=== PATIENT | male | born 1940 | race Caucasian/White ===

== ENCOUNTER → 2017-11-05 10:14 | Outpatient (CLI) | payer MEDICARE, SELFPAY ==
[2017-11-05 12:49] LABS: Anion Gap 8 (5-15); BUN 18 mg/dL (7-18); BUN/Creat Ratio 19.8 RATIO (10-20); Calcium,Total 8.5 mg/dL (8.5-10.1); Chloride 109 mmol/L (98-107); Cholesterol 172 mg/dL (200); Creatinine, Serum 0.91 mg/dL (0.70-1.30); EST Glomerular Filtration Rate 86 mL/min (>60); Est Glom Filt Rate - Afr Amer 104 mL/min (>60); Glucose 118 mg/dL (74-106); High Density Lipoprotein 32 mg/dL; PSA,Total - Annual Screen < 0.01 ng/mL (0.00-4.00); Potassium 4.1 mmol/L (3.5-5.1); Sodium Level 142 mmol/L (136-145); Thyroid Stim Hormone (TSH) 3.07 uIU/mL (0.358-3.74); Triglycerides 200 mg/dL; Very Low Density Lipoprotein 40 mg/dL (5-40)
[2017-11-06 11:17] LABS: Vitamin D,25 Hydroxy 31.6 ng/mL (29.95-100.01)
== END ==
PROVIDERS: Family Provider Family Medicine; PCP Family Medicine; Visit Provider Family Medicine
DX: Z00.00 Encounter for general adult medical examination without abnormal findings (principal); Z12.5 Encounter for screening for malignant neoplasm of prostate
CPT/HCPCS: 36415; 80048; 80061; 82306; 84153; 84443; G0103

== ENCOUNTER → 2018-12-10 09:22 | Outpatient (CLI) | payer MEDICARE, SELFPAY ==
[2018-12-10 10:39] LABS: Anion Gap 4 (5-15); BUN 21 mg/dL (7-18); BUN/Creat Ratio 21.7 RATIO (10-20); Calcium,Total 8.6 mg/dL (8.5-10.1); Chloride 111 mmol/L (98-107); Creatinine, Serum 0.97 mg/dL (0.70-1.30); EST Glomerular Filtration Rate 80 mL/min (>60); Est Glom Filt Rate - Afr Amer 96 mL/min (>60); Glucose 132 mg/dL (74-106); Potassium 4.1 mmol/L (3.5-5.1); Sodium Level 140 mmol/L (136-145)
== END ==
PROVIDERS: Family Provider Family Medicine; PCP Family Medicine; Referring Provider Family Medicine; Visit Provider Family Medicine
DX: R42 Dizziness and giddiness (principal)
CPT/HCPCS: 36415; 80048

== ENCOUNTER 2020-07-05 13:43 | Outpatient (RCR) | payer MEDICARE, SELFPAY | END 2020-07-05 23:59 | LOC: IMMUN 13:43 | PROVIDERS: PCP Family Medicine; Visit Provider Family Medicine | DX: Z23 Encounter for immunization (principal) | CPT/HCPCS: 0011A; 0012A; 91301 ==

== ENCOUNTER → 2022-09-10 | Outpatient (CLI) | payer MEDICARE, SELFPAY ==
[2022-09-10 12:58] LABS: Anion Gap 8 (5-15); BUN 19 mg/dL (7-18); BUN/Creat Ratio 20.1 RATIO (10-20); Chloride 108 mmol/L (98-107); Cholesterol 214 mg/dL (200); Creatinine, Serum 0.94 mg/dL (0.70-1.30); EST Glomerular Filtration Rate 81 mL/min (>60); Est Glom Filt Rate - Afr Amer 98 mL/min (>60); Glucose 125 mg/dL (74-106); High Density Lipoprotein 35 mg/dL; PSA,Total - Annual Screen < 0.01 ng/mL (0.00-4.00); Potassium 4.4 mmol/L (3.5-5.1); Sodium Level 141 mmol/L (136-145); Triglycerides 265 mg/dL; Very Low Density Lipoprotein 53 mg/dL (5-40)
[2022-09-10 13:04] LABS: Vitamin D,25 Hydroxy 47.8 ng/mL
[2022-09-10 17:06] LABS: Hemoglobin A1c 6.6 % (3.8-5.6)
== END | disposition home or self-care (01) ==
LOC: MFPLAB 10:16
PROVIDERS: PCP Family Medicine; Referring Provider Family Medicine; Visit Provider Family Medicine
DX: Z00.00 Encounter for general adult medical examination without abnormal findings (principal); E55.9 Vitamin D deficiency, unspecified; R73.01 Impaired fasting glucose; Z12.5 Encounter for screening for malignant neoplasm of prostate
CPT/HCPCS: 36415; 80048; 80061; 82306; 83036; 84153; G0103

== ENCOUNTER 2023-05-19 10:19 | Observation (INO) | payer MEDICARE, SELFPAY ==
[2023-05-19] VITALS (7 sets, daily range): BP systolic 117–138; BP diastolic 59–78; PULSE 93–107; RESP 12–18; TEMP 36.9–37.4; O2SAT 96–99; BMI 29.6; BMI 23.9
--- NOTE | 2023-05-19 10:29 | CT_ITS ---
STUDY: CT BRAIN WITHOUT CONTRAST REASON FOR EXAM: Male, 83 years old. Weakness. Fall. RADIATION DOSAGE (If Supplied By Facility): CTDIvol = ( 44.99 ) mGy, DLP = ( 796.11 ) mGycm TECHNIQUE: Transaxial CT imaging of the brain was performed without administration of intravenous contrast material. Individualized dose optimization techniques were used for this CT. COMPARISON: No relevant priors. FINDINGS: Normal soft tissue structures. Normal calvarium. There is mild cerebral atrophy with widening of the extra-axial spaces and ventricular dilatation. There are areas of decreased attenuation within the white matter tracts of the supratentorial brain, consistent with microvascular disease changes. Normal basal ganglia and thalami. Normal brainstem. Normal cerebellum. There is no intracranial hemorrhage. There are no findings of an acute ischemic infarction. Atherosclerotic calcific plaques of the vertebral arteries and cavernous portions of the internal carotid arteries bilaterally. Normal visualized paranasal sinuses. CT/Brain/Head without Contrast IMPRESSION: Chronic involutional changes of the brain. Electronically Signed: Adis Carlisle MD at 12:06 EST ,
--- NOTE | 2023-05-19 10:31 | EDS_ITS ---
HPI HPI - Fall History of Present Illness Chief Complaint: Fall Informant: patient and family (Daughter) Occured/Mechanism Occurred: Today Usually ambulates: Without assistance Pain/Injury Pain Location: none Current Severity: Mild Maximum Severity: Mild Associated Symptoms Associated Symptoms: Positive for Weakness; Negative for Parasthesias, Loss of function, Inability to ambulate, Loss of consciousness or Amnesia Narrative Narrative: 83-year-old male history of prior prostate cancer for which he underwent prostatectomy. Prior lumbar disc surgery 20 to 30 years ago. Very active gentleman. Walks 1 to 2 miles each day. Today just feels weak all over. He tried to get out of bed and he just lowered himself to the floor and was unable to get himself up. Brought in by squad. Denies any injuries from the fall. No recent headaches. No chest pain or shortness of breath. He denies any recent fever or chills. He denies any recent nausea, vomiting or diarrhea. He denies any dysuria. Prior similar symptoms: No Recent Illness/Hospitalization: No PFSH PFSH Medical History Bilateral cataracts Eye trauma Prostate cancer Allergy/AdvReac Type Severity Reaction Status Date / Time No Known Allergies Allergy Verified 05/19/23 10:28 Surgical History History of back surgery Social History Smoking Status: Never smoker ROS ROS ED ROS Narrative Neurolyse weakness. Denies any recent illness. Review of Systems ROS Unobtainable: Denies due to encephalopathy Constitutional Constitutional ED: Denies chills or fever(s) Eyes Eyes: Denies blurry vision ENT ENT ED: Denies ear pain Cardiovascular Cardiovascular: Denies chest pain Respiratory/Chest Respiratory/Chest: Denies cough or dyspnea Gastrointestinal Gastrointestinal: Denies abdominal pain, constipation, diarrhea, melena, nausea or vomiting Genitourinary Genitourinary ED: Denies dysuria or hematuria Musculoskeletal Musculoskeletal: Reports back pain; Denies arthralgias Integumentary Denies abscess or Abrasions Neurologic Neurologic: Denies headache(s) Psychiatric Psychiatric: Denies anxiety Endocrine Endocrinology: Denies polydipsia Hematologic/Lymphatic Hematologic/Lymphatic: Denies easy bleeding or easy bruising Allergic/Immunologic Allergic/Immunologic ED: Denies mouth swelling or tongue swelling EXAM Physical Exam Narrative Exam Narrative: 83-year-old male. Vital signs stable afebrile. No acute distress. Daughter who is an RN is at bedside. H EENT exam unremarkable atraumatic. No facial droop. Normal speech. No trauma. Neck nontender. No lymphadenopathy. Lungs clear to auscultation bilaterally. Heart regular rhythm rate in the 90s. No murmur. Chest wall nontender. Abdomen soft nontender. Back nontender. No signs of trauma. Pelvic girdle intact. Moving all 4 extremities. Normal senior international tax manager strength. Normal dorsi plantarflexion. No edema. Neurologically is awake and alert. Answering questions and following commands. Normal senior international tax manager strength. Normal dorsi plantarflexion. No drift. Const Vital Signs: 05/19/23 10:21 05/19/23 10:49 05/19/23 10:49 Temperature 99 F Temperature Source Temporal Pulse Rate 99 Respiratory Rate 18 Respiratory Effort Normal Non-Labored Normal Non-Labored Respiratory Depth Normal Respiratory Pattern Normal Blood Pressure 130/78 H Blood Pressure Mean 95 Pulse Ox 99 97 Oxygen Delivery Method Room Air Room Air Positive well nourished and well developed; Negative for obese, cachectic, contractures or unkempt General Appearance ED: well developed and NAD; Negative for unkempt, cachectic or contractures Nutritional Appearance: Negative for cachectic or obese HEENT Reports normocephalic atraumatic; Negative for trauma, contusion, hematoma or tenderness Eyes PERRL and EOMs intact bilaterally General Eye ED: Negative for pale conjunctiva or scleral icterus Neck full ROM, no lymphadenopathy and supple General: Negative for tenderness Chest Wall inspection of chest normal and palpation of chest normal Chest: Negative for other Resp normal respiratory effort, no retractions and clear to auscultation bilaterally Effort and Inspection: Negative for pain with movement Auscultation: Negative for rales, rhonchi or wheezes Cardio regular rate, regular rhythm, S1 normal heart sound, S2 normal heart sound and no murmurs Rate: Negative for bradycardia or tachycardic Rhythm: Negative for abnormal rhythm Bruits: Negative for other GI non-tender, non-distended and no masses Inspection: Negative for abdominal distention Auscultation: normoactive bowel sounds Palpation: soft; Negative for guarding or rebound tenderness present Back/Spine no CVA tenderness General Back: Negative for CVA tenderness Cervical Spine: Negative for cervical spine tenderness Thoracic Spine / Upper Back: Negative for ROM limited Lumbar Spine / Lower Back: Negative for lumbar spinal tenderness Extremity Extremity Narrative: Moving all 4 extremities. Nontender no edema. Neuro oriented x3, CN's II-XII intact bilaterally, moves all extremities, no focal motor deficits and no sensory deficits noted Sensorium / Orientation: oriented to person, oriented to place and oriented to time; Negative for orientation impaired, confused, lethargic or stuporous Motor Exam: strength 5/5 throughout Psych mental status grossly normal and thought process normal Appearance: Negative for unkempt Attitude: No agitated Mood & Affect: Negative for depressed, anxious or tearful Skin General Skin Exam: Negative for other Lesions: no lesions Rashes: no rashes Trauma: Negative for abrasion or laceration MDM MDM MDM Narrative Medical decision making narrative: 83-year-old male with generalized weakness. He did not have any focal findings make me think this is a stroke. He basely try to get out of bed this morning and slid to the ground and was unable to get up. No injuries from that. Screening labs are being obtained. Repeat exam patient is doing well at 11:45 AM. We did try to walk him with a walker patient was very weak he needed a lot of assistance and he almost fell. We helped him back in bed. I will speak to the hospitalist about admission. Both the patient and his daughter are comfortable with the plan. History & Record Review Discussion w/independent historian: Patient Additional record(s) reviewed:: Prior inpatient record, Prior outpatient record, Prior ED visit and Prior labs Lab Data Attestation: I reviewed the patient's lab results. Lab results narrative: CBC shows a white count 9.9. H&H 12.5 and 37.6. Platelets 190. No prior CBC available for comparison. Chemistries show a gap of 3 normal BUN of 17 creatinine of 1. Glucose 155. Liver enzymes are normal. Troponin is normal at 8. Chest x-ray chronic changes no acute process. Rapid COVID-positive. Influenza negative. Labs: Laboratory Results - last 24 hr 05/19/23 10:40 WBC 9.9 RBC 3.75 L Hgb 12.5 L Hct 37.6 L MCV 100.3 H MCH 33.3 H MCHC 33.2 RDW Std Deviation 47.0 H RDW Coeff of Ernestina 12.8 Plt Count 190 MPV 8.8 Immature Gran % (Auto) 0.400 Neut % (Auto) 82.5 H Lymph % (Auto) 7.7 L [place] % (Auto) 8.2 Eos % (Auto) 0.9 Baso % (Auto) 0.3 Absolute Neuts (auto) 8.2 H Absolute Lymphs (auto) 0.76 L Nucleated RBC % 0 Sodium 138 Potassium 4.4 Chloride 108 H Carbon Dioxide 27.0 Anion Gap 3 L BUN 17 Creatinine 1.02 Estim Creat Clear Calc 55.66 Est GFR (MDRD) Af Amer 89 Est GFR (MDRD) Non-Af 74 BUN/Creatinine Ratio 16.7 Glucose 155 H Calcium 8.6 Total Bilirubin 0.80 AST 12 L ALT 18 Alkaline Phosphatase 92 Troponin I High Sens 8 Total Protein 7.2 Albumin 3.3 Globulin 3.9 Albumin/Globulin Ratio 0.8 L Radiography Chest X-Ray - ED: 1 View, Read by ED Physician, Heart, Lungs, Mediastinum, Bony Structures, No Acute Disease and Chronic Changes Diagnostic Testing: Clinical Impression(s) from Imaging Studies Chest X-Ray 05/19/23 10:55 IMPRESSION: Normal x-ray examination of the chest. Electronically Signed: Adis Carlisle MD at 11:26 EST Reading Location ID and State: [address] [place] [address] , Service support , Chest x-ray, portable, single view interpreted by myself shows no acute abnormality. Normal cardiac silhouette. Normal lung oconnell. Rhythm Strip Rhythm Strip: Sinus Tach Rate: 101 Ectopy: None EKG Initial EKG: Attestation: I personally reviewed and interpreted this EKG as follows: Interpretation: No Acute Injury Pattern and Sinus Tachycardia Comments: Sinus tachycardia rate of 101 no acute signs of MA or ischemia. Discharge Plan Triage Chief Complaint: Fall ED Provider: Po Chun Dx/Rx/DC Orders Primary Care Provider: Bayron Alvarez Referrals: Bayron Alvarez MD [Primary Care Provider] -
--- NOTE | 2023-05-19 10:45 | NURSING ---
NO OLD EKGS
[2023-05-19 10:49] LABS: Absolute Lymphocyte Count 0.76 X10^3/uL (0.83-4.51); Absolute Neutrophil Count 8.2 X10^3/uL (2.0-7.7); Basophil# 0.03 X10^3/uL; Basophil% 0.3 % (0-1); Eosinophil# 0.09 X10^3/uL; Eosinophils% 0.9 % (0-5); Hematocrit 37.6 % (40-54); Hemoglobin 12.5 g/dL (13.0-16.5); Lymphocyte # 0.76 X10^3/ul (0.83-4.51); Lymphocyte % 7.7 % (19-41); Mean Corp Hgb Conc 33.2 g/dL (32-36); Mean Corpuscular Hgb 33.3 pg (27.0-32.0); Mean Corpuscular Volume 100.3 fL (80-94); Mean Platelet Vol. 8.8 fl (6.2-12.0); Monocyte# 0.81 X10^3/uL; Monocyte% 8.2 % (0-10); NRBC Flagged by Analyzer 0 % (0-5); Neutrophil # 8.19 X10^3/uL (2.7-7.7); Neutrophil % 82.5 % (47-70); Platelet Count 190 K/mm3 (150-450); RBC Distribution Width CV 12.8 % (11.6-14.6); Red Blood Count 3.75 M/mm3 (4.6-6.2); White Blood Count 9.9 K/mm3 (4.4-11.0)
--- NOTE | 2023-05-19 10:55 | RAD_ITS ---
STUDY: X-RAY CHEST REASON FOR EXAM: Male, 83 years old. weakness TECHNIQUE: Single AP portable view of the chest. COMPARISON: None. FINDINGS: EKG electrodes are seen. The lungs are clear and expanded. There is no demonstrated pleural abnormality. Normal size heart. Normal mediastinum and bravo. Normal visualized pulmonary arteries. There is atherosclerotic tortuosity of the aortic arch and descending thoracic aorta. There are diffuse degenerative changes of the visualized thoracic spine. Normal visualized ribs, clavicles, and shoulders. There is no demonstrated abnormality of the visualized soft tissue structures of the upper abdomen. RAD/Chest 1 View (Portable) IMPRESSION: Normal x-ray examination of the chest. Electronically Signed: Adis Carlisle MD at 11:26 EST ,
[2023-05-19 11:09] LABS: ALB/GLOB Ratio 0.8 RATIO (0.9-2.4); AST(SGOT) 12 U/L (15-37); Alanine Aminotransfer ALT/SGPT 18 U/L (16-61); Albumin, Serum 3.3 g/dL (3.2-5.0); Alkaline Phosphatase 92 U/L (45-117); Anion Gap 3 (5-15); BUN 17 mg/dL (7-18); BUN/Creat Ratio 16.7 RATIO (10-20); Calcium,Total 8.6 mg/dL (8.5-10.1); Chloride 108 mmol/L (98-107); Creatinine, Serum 1.02 mg/dL (0.70-1.30); EST Glomerular Filtration Rate 74 mL/min (>60); Est Glom Filt Rate - Afr Amer 89 mL/min (>60); Estimated Creatinine Clearance 55.66 ml/min; Globulin 3.9 g/dL (2.2-4.2); Glucose 155 mg/dL (74-106); Potassium 4.4 mmol/L (3.5-5.1); Protein, Total 7.2 g/dL (6.4-8.2); Sodium Level 138 mmol/L (136-145); Troponin-I HS 8 pg/mL (3.0-78.0)
--- NOTE | 2023-05-19 11:53 | HP.PCM.HOS_ITS ---
HPI - General General Date of Admission: 05/19/23 Date of Service: 05/19/23 Chief Complaint: debility, mechanical fall HPI Narrative JAKE GUTIÉRREZ, is a 83 M with a PMH as outlined who presents via the ED on 05/19/2023 with a complaint of weakness and mechanical fall. He is usually very active and able to walk at least 1-2 miles every day. Today he felt very weak; he tried to to get out of bed but was very weak and so just lowered himself to the ground. He was unable to get up by himself, and family couldnt get him up either. His family therefore called in the squad and he was brought in to the ED. He denied any fever, chills, palpitations, dizziness, nausea, vomiting or any other symptoms. Review of systems is otherwise negaive. Vitals at time of review were temperature of 99 Fahrenheit with pulse rate of 99, blood pressure 130/78 and pulse ox of 97% on room air. CBC showed hemoglobin of 12.5 with WBC of 9.9 and platelets of 190. Chemistry was essentially unremarkable. COVID test was negative. Chest x-ray showed no acute cardiopulmonary process and brain CT showed no acute intracranial pathology. He has been admitted to be managed for debility and weakness likely due to COVID. [facility] Medical History Bilateral cataracts Eye trauma Prostate cancer Home Medications vitamin B complex (B-Complex tablet) 1 tab PO DAILY 05/19/23 [History Last Taken 05/19/23] Allergy/AdvReac Type Severity Reaction Status Date / Time No Known Allergies Allergy Verified 05/19/23 10:28 Surgical History History of back surgery Social History Smoking Status: Never smoker ROS Constitutional Constitutional: Reports fatigue, malaise and weakness; Denies anorexia, change in weight, chills or fever(s) Eyes Eyes: Denies change in vision ENT HEENT: Denies dysphagia or headache(s) Cardiovascular Cardiovascular: Denies chest pain, dyspnea on exertion, edema, lightheadedness, orthopnea, palpitations, paroxysmal nocturnal dyspnea or rapid heart rate Respiratory/Chest Respiratory/Chest: Denies cough, dyspnea, shortness of breath at rest or shortness of breath with exertion Gastrointestinal Gastrointestinal: Denies abdominal pain, constipation, diarrhea, nausea or vomiting Genitourinary Genitourinary: Denies burning urination, difficulty urinating or dysuria Musculoskeletal Musculoskeletal: Denies arthralgias or back pain Neurologic Neurologic: Denies dizziness, focal weakness, headache(s) or numbness Psychiatric Psychiatric: Denies anxiety Hematologic/Lymphatic Hematologic/Lymphatic: Denies anemia Vital Signs Vital Signs Vital Signs: 05/19/23 10:21 05/19/23 10:49 05/19/23 10:49 Temperature 99 F Temperature Source Temporal Pulse Rate 99 Respiratory Rate 18 Respiratory Effort Normal Non-Labored Normal Non-Labored Respiratory Depth Normal Respiratory Pattern Normal Blood Pressure 130/78 H Blood Pressure Mean 95 Pulse Ox 99 97 Oxygen Delivery Method Room Air Room Air Weight Weight: 206 lb 9.17 oz Body Mass Index (BMI) 29.6 Physical Exam Const alert, oriented x3 and no apparent distress General Appearance: cooperative HEENT normocephalic, head/scalp atraumatic, hearing grossly normal bilaterally and m oist oral mucous membranes Mouth: oral and palatal mucosa normal Eyes PERRL, EOMs intact bilaterally and conjunctivae normal Neck no lymphadenopathy and supple Resp normal respiratory effort, no retractions, no use of accessory muscles and clear to auscultation bilaterally Resp Narrative: on room air. Cardio regular rate, regular rhythm, S1 normal heart sound, S2 normal heart sound and no murmurs GI normal to inspection, nondistended, normoactive bowel sounds, soft to palpation, non-tender and non-distended Extremity normal to inspection, full ROM and no clubbing, cyanosis or edema Neuro oriented x3, CN's II-XII intact bilaterally, moves all extremities and no focal motor deficits Sensorium / Orientation: awake and alert Motor Exam: strength 5/5 throughout Psych affect normal Results Lab / Micro Data 05/19/23 10:40 05/19/23 10:40 Labs: Laboratory Results - last 24 hr 05/19/23 10:40: WBC 9.9, RBC 3.75 L, Hgb 12.5 L, Hct 37.6 L, MCV 100.3 H, MCH 33.3 H, MCHC 33.2, RDW Std Deviation 47.0 H, RDW Coeff of Ernestina 12.8, Plt Count 190, MPV 8.8, Immature Gran % (Auto) 0.400, Neut % (Auto) 82.5 H, Lymph % (Auto) 7.7 L, [place] % (Auto) 8.2, Eos % (Auto) 0.9, Baso % (Auto) 0.3, Absolute Neuts (auto) 8.2 H, Absolute Lymphs (auto) 0.76 L, Nucleated RBC % 0, Sodium 138, Potassium 4.4, Chloride 108 H, Carbon Dioxide 27.0, Anion Gap 3 L, BUN 17, Creatinine 1.02, Estim Creat Clear Calc 55.66, Est GFR (MDRD) Af Amer 89, Est GFR (MDRD) Non-Af 74, BUN/Creatinine Ratio 16.7, Glucose 155 H, Calcium 8.6, Total Bilirubin 0.80, AST 12 L, ALT 18, Alkaline Phosphatase 92, Troponin I High Sens 8, Total Protein 7.2, Albumin 3.3, Globulin 3.9, Albumin/Globulin Ratio 0.8 L Micro: Microbiology 05/19/23 10:41 Nasal Secretion SARS-CoV-2 & FLU Antigen (Rapid) - Final Rhythm Strip Rhythm Strip: Sinus Tach Rate: 101 Ectopy: None Imagaing Radiology Impression Chest X-Ray 05/19/23 10:55 IMPRESSION: Normal x-ray examination of the chest. Electronically Signed: Adis Carlisle MD at 11:26 EST Reading Location ID and State: [address] [place] [address] , Service support , Assessment & Plan Assessment/Plan (1) Fall: (2) Difficulty in walking: (3) COVID: PLAN: Plan #Debility and weakness * Likely due to COVID-19 infection. Currently on room air. * [place] very weak today. He is usually very active and able to walk at least 1 to 2 miles daily. * Admit to [facility] under observation. * Hydrate gently with IV fluids. Consult PT OT. Fall precautions. * #COVID-19 infection: Asymptomatic. On room air. Will hold off on Decadron and remdesivir as he is on room air. #History of remote prostate cancer s/p prostatectomy: Stable DVT prophylaxis: Lovenox CODE STATUS: full code * Patient counseled extensively about different types of CODE STATUS including full code, DNR CCA and DNR CCA. Patient elects to be full code. Total [id number] time 16 minutes. Charges/Coding Visit Charges Inpatient E&M: 63061 Init Hosp L2 Procedures Hospitalists Procedures: 34698 Advncd Care Plan 30 Min
--- NOTE | 2023-05-19 11:57 | NURSING ---
[facility] OBS [place] [facility] WEAKNESS, COVID, DIFFICULTY WALKING
[2023-05-19] MEDS: 0.9% Normal Saline (1000mL) 1,000 ML 125 ML IV ×2 (12:57→21:19)
[2023-05-19 14:35] LABS: Bacteria 0 SEEN /hpf (None Seen); Mucous, Urine 0 SEEN /hpf (<or=2+); Red Blood Cells-Urine 0 SEEN /hpf (0-5); Squamous Epithelial Cells - UA 0 SEEN /hpf (0-5); White Blood Cells 0 SEEN /hpf (0-5)
[2023-05-19 14:36] LABS: Color, Urine Yellow (Yellow); Glucose, Dipstick Normal (Normal); Ketone-Dipstick Negative (Negative); Leukocyte Esterase-Dipstick Negative /ul (Negative); Nitrite-Dipstick Negative (Negative); Occult Blood-Urine Negative /ul (Negative); Protein-Dipstick 15 mg/dl (Negative); Specific Gravity, Urine 1.015 (1.002-1.030); Urine Bilirubin Dipstick Negative (Negative); Urine Clarity Clear (Clear); Urine Urobilinogen Normal (Normal); Urine pH 6.5 (5.0 - 8.0)
[2023-05-20 03:00] VITALS: BP 111/59; PULSE 78; RESP 15; TEMP 36.8; O2SAT 94
[2023-05-20 03:08] VITALS: BP 111/59; PULSE 78; RESP 15; TEMP 36.8; O2SAT 94
[2023-05-20 07:58] VITALS: BP 106/65; PULSE 82; RESP 16; TEMP 37.2; O2SAT 99
[2023-05-20] MEDS: Vitamin B Comp W-C Capsule 1 CAP PO (08:17)
[2023-05-20] MEDS: Enoxaparin 40 MG/0.4 ML Syringe SC (08:18)
[2023-05-20 08:44] LABS: Absolute Lymphocyte Count 1.11 X10^3/uL (0.83-4.51); Basophil# 0.03 X10^3/uL; Basophil% 0.4 % (0-1); Eosinophil# 0.15 X10^3/uL; Eosinophils% 1.8 % (0-5); Hematocrit 32.8 % (40-54); Hemoglobin 10.7 g/dL (13.0-16.5); Lymphocyte # 1.11 X10^3/ul (0.83-4.51); Lymphocyte % 13.4 % (19-41); Mean Corp Hgb Conc 32.6 g/dL (32-36); Mean Corpuscular Hgb 33.2 pg (27.0-32.0); Mean Corpuscular Volume 101.9 fL (80-94); Mean Platelet Vol. 8.9 fl (6.2-12.0); Monocyte% 12.1 % (0-10); NRBC Flagged by Analyzer 0 % (0-5); Neutrophil # 5.96 X10^3/uL (2.7-7.7); Neutrophil % 71.8 % (47-70); Platelet Count 165 K/mm3 (150-450); Red Blood Count 3.22 M/mm3 (4.6-6.2); White Blood Count 8.3 K/mm3 (4.4-11.0)
[2023-05-20 09:23] LABS: Anion Gap 4 (5-15); BUN 16 mg/dL (7-18); BUN/Creat Ratio 16.3 RATIO (10-20); Calcium,Total 8.4 mg/dL (8.5-10.1); Chloride 113 mmol/L (98-107); Creatinine, Serum 0.98 mg/dL (0.70-1.30); EST Glomerular Filtration Rate 77 mL/min (>60); Est Glom Filt Rate - Afr Amer 93 mL/min (>60); Estimated Creatinine Clearance 61.59 ml/min; Glucose 141 mg/dL (74-106); Potassium 4.1 mmol/L (3.5-5.1); Sodium Level 140 mmol/L (136-145)
--- NOTE | 2023-05-20 11:02 | DCINST_ITS ---
Discharge Instructions Diet Discharge Diet: No restrictions Activity Discharge Activity: Return to Normal Activity and - (Quarantine for a total of 7 days from 05/19/2023) Weight Bearing Status: Full weight bearing Follow Up Care Test Results: Test results from this visit will be discussed in further detail at your follow- up appointment, if applicable. Discharge Plan Admission Admit Date/Time: 05/19/23 12:12 Primary Reason for Your Visit: covid-19 infection Attending Provider: Shaheen Mcfarland Primary Care Provider: Bayron Alvarez Consulting Providers: Jasmin Hurst Discharge Orders/Prescriptions Prescriptions: Continued vitamin B complex [B-Complex] Tablet 1 tab PO DAILY Referrals / Follow Up: Bayron Alvarez MD [Primary Care Provider] - See Referral Note (At next scheduled appointment time) Disposition Disposition (needs filled in before D/C Order can be placed): Home, Self Care
--- NOTE | 2023-05-20 11:06 | PCM.DC.SUM ---
Providers Date of Admission: 05/19/23 Date of Discharge: 05/20/23 Primary Care Physician: Dr. Bayron Alvarez MD Reason For Visit: DEBILITY AND WEAKNESS / COVID INFECTION Diagnosis Discharge Diagnosis (1) Fall: Status: Acute Code(s): W19.XXXA - Unspecified fall, initial encounter (2) Difficulty in walking: Status: Acute Code(s): R26.2 - Difficulty in walking, not elsewhere classified (3) COVID: Status: Acute Code(s): U07.1 - COVID-19 Plan 1. Generalized weakness secondary to COVID-19 infection #2 COVID-19 infection requiring COVID-19 precautions, without pneumonia Medications at Discharge Home Medications vitamin B complex (B-Complex tablet) 1 tab PO DAILY 05/19/23 Hospital Course Operations None Procedures None Summary of Care Provided Minutes Spent on Discharge: 30 Hospital Course: 3-year-old white female was seen in the emergency room at [facility] with the complaint of generalized weakness and a mechanical fall at home. Workup in the emergency room revealed her pulse ox to be 97% on room air, CBC showed a hemoglobin of 12.5 and a white blood cell count of 9.9. Patient's chemistry profile was unremarkable, COVID test was positive. Patient was placed in the observation status on PCU and seen by PT and OT, she was placed in COVID precautions. The following day, patient appeared improved from admission. On 05/20/2023, patient was seen and examined: On examination she appeared in good health and spirits, she does not appear to be in any distress. Vital signs as documented. Skin warm and dry and without overt rashes. Neck without JVD, thyroid appears normal, trachea is midline, neck is supple. Lungs clear, normal air movement was noted. Heart exam notable for regular rhythm, normal sounds and absence of murmurs, rubs or gallops. Abdomen unremarkable and without evidence of organomegaly, masses, or abdominal aortic enlargement, bowel sounds are present in all 4 quadrants, no abdominal tenderness was noted. Extremities nonedematous, no cyanosis was noted, no clubbing was noted. Neuro: Cranial nerves II through XII are grossly intact, no focal motor deficits were noted, sensation to light touch and pinprick is intact, motor exam 5/5 throughout. Psych: Patient is alert and oriented x3, she does not appear anxious or depressed, she does not appear agitated. Patient appears stable for discharge home on 05/20/2023. Weight / BMI Weight Weight: 80 kg Body Mass Index (BMI) 23.9 ABG / Lab / Microbiology Data 05/20/23 08:25 05/20/23 08:25 Laboratory: Laboratory Results - last 24 hr 05/19/23 10:40: Sodium 138, Potassium 4.4, Chloride 108 H, Carbon Dioxide 27.0, Anion Gap 3 L, BUN 17, Creatinine 1.02, Estim Creat Clear Calc 55.66, Est GFR (MDRD) Af Amer 89, Est GFR (MDRD) Non-Af 74, BUN/Creatinine Ratio 16.7, Glucose 155 H, Calcium 8.6, Total Bilirubin 0.80, AST 12 L, ALT 18, Alkaline Phosphatase 92, Troponin I High Sens 8, Total Protein 7.2, Albumin 3.3, Globulin 3.9, Albumin/Globulin Ratio 0.8 L 05/19/23 14:20: Urine Color Yellow, Urine Clarity Clear, Urine pH 6.5, Ur Specific [place] 1.015, Urine Protein 15 H, Urine Glucose (UA) Normal, Urine Ketones Negative, Urine Occult Blood Negative, Urine Nitrite Negative, Urine Bilirubin Negative, Urine Urobilinogen Normal, Ur Leukocyte Esterase Negative, Urine RBC 0 SEEN, Urine WBC 0 SEEN, Ur Squamous Epith Cells 0 SEEN, Urine Bacteria 0 SEEN, Urine Mucus 0 SEEN 05/20/23 08:25: WBC 8.3, RBC 3.22 L, Hgb 10.7 L, Hct 32.8 L, MCV 101.9 H, MCH 33.2 H, MCHC 32.6, RDW Std Deviation 49.0 H, RDW Coeff of Ernestina 13.0, Plt Count 165, MPV 8.9, Immature Gran % (Auto) 0.500, Neut % (Auto) 71.8 H, Lymph % (Auto) 13.4 L, [place] % (Auto) 12.1 H, Eos % (Auto) 1.8, Baso % (Auto) 0.4, Absolute Neuts (auto) 6.0, Absolute Lymphs (auto) 1.11, Nucleated RBC % 0, Sodium 140, Potassium 4.1, Chloride 113 H, Carbon Dioxide 23.0, Anion Gap 4 L, BUN 16, Creatinine 0.98, Estim Creat Clear Calc 61.59, Est GFR (MDRD) Af Amer 93, Est GFR (MDRD) Non-Af 77, BUN/Creatinine Ratio 16.3, Glucose 141 H, Calcium 8.4 L Microbiology: Microbiology 05/19/23 10:41 Nasal Secretion SARS-CoV-2 & FLU Antigen (Rapid) - Final SARS-CoV-2 (COVID 19) Radiography Diagnostic Testing: Radiology Impression Brain CT 05/19/23 10:29 IMPRESSION: Chronic involutional changes of the brain. Electronically Signed: Adis Carlisle MD at 12:06 EST , Chest X-Ray 05/19/23 10:55 IMPRESSION: Normal x-ray examination of the chest. Electronically Signed: Adis Carlisle MD at 11:26 EST , D/C Instructions Discharge Diet: No restrictions Weight Bearing Status: Full weight bearing Meaningful Use Info Meaningful Use Diagnoses (Choose all that apply): None applicable Discharge Plan Admission Admit Date/Time: 05/19/23 12:12 Primary Reason for Your Visit: covid-19 infection Attending Provider: Shaheen Mcfarland Primary Care Provider: Bayron Alvarez Consulting Providers: Jasmin Hurst Discharge Orders/Prescriptions Prescriptions: Continued vitamin B complex [B-Complex] Tablet 1 tab PO DAILY Referrals / Follow Up: Bayron Alvarez MD [Primary Care Provider] - See Referral Note (At next scheduled appointment time) Disposition Disposition (needs filled in before D/C Order can be placed): Home, Self Care Charges/Coding Visit Charges Inpatient E&M: 98043 Disch Hosp
--- NOTE | 2023-05-20 11:52 | PHA.DC.MR.R ---
Pharmacy [place] Med Reconciliation Pharmacy Service has performed discharge medication reconciliation for this patient. The patient's discharge medication list was reviewed for discrepancies and discrepancies were resolved. Medications at Discharge Home Medications vitamin B complex (B-Complex tablet) 1 tab PO DAILY 05/19/23
[2023-05-20 12:29] VITALS: BP 120/67; PULSE 76; RESP 16; TEMP 36.8; O2SAT 98
[2023-05-20 12:41] VITALS: O2SAT 100
--- NOTE | 2023-05-20 13:30 | CASEMGMT ---
[facility]ing has order for discharge. RN GILES discussed needs at [facility]. Patient denies needs at discharge. Patient did not qualify for home oxygen and ambulating well with therapy. Patient denied further questions or concerns
== END 2023-05-20 11:05 | disposition home or self-care (01) ==
LOC: ED 11:56 → PCU 12:22
PROVIDERS: Admitting Provider Student in an Organized Health Care Education/Training Program; Emergency Provider Emergency Medicine; PCP Family Medicine; Referring Provider Emergency Medicine; Visit Provider Internal Medicine
DX: U07.1 COVID-19 (principal); R26.2 Difficulty in walking, not elsewhere classified; Z91.81 History of falling
CPT/HCPCS: 36415; 70450; 71045; 80048; 80053; 81001; 84484; 85025; 87428; 93005; 96360; 96361; 96372; 97161; 97166; 99221; 99285; J7030; J7050; A4216; G0378

== ENCOUNTER → 2023-07-29 | Outpatient (CLI) | payer MEDICARE, SELFPAY ==
--- NOTE | 2023-07-29 12:49 | VDLE_ITS ---
Reason For Study: Right leg pain RIGHT LEFT GSV is normal. CFV is compressible, spontaneous, phasic, CFV is compressible, spontaneous, phasic, competent, and demonstrates normal competent and demonstrates normal augmentation. augmentation. FV is compressible, spontaneous, phasic, competent and demonstrates normal augmentation. POP V is compressible, spontaneous, phasic, competent and demonstrates normal augmentation. T/P Trunk is compressible. PTV is compressible. RT PerV is compressible. Procedure This is a venous duplex using B-mode, color flow and spectral Doppler. Exam performed in department. A preliminary report was called and/or faxed to Dr. Alvarez. VL/Venous Duplex US, Unilateral Interpretation Summary Deep veins of the right lower extremity are patent and compressible segmentally . There is no evidence of right lower extremity deep vein thrombosis. Valvular competence misha ears intact within the proximal deep venous system on the right . The right great saphenous vein a ppears patent and compressible segmentally. The left common femoral vein is patent and compressib le . Ordering Physician: Bayron Alvarez Referring Physician: Bayron Alvarez Performed By: Olivia Maharaj RVT
== END | disposition home or self-care (01) ==
LOC: CVS 12:47
PROVIDERS: PCP Family Medicine; Referring Provider Family Medicine; Visit Provider Family Medicine
DX: M79.604 Pain in right leg (principal)
CPT/HCPCS: 93971

== ENCOUNTER → 2025-01-30 | Outpatient (CLI) | payer MEDICARE, SELFPAY ==
[2025-01-30 13:01] LABS: Anion Gap 11 (5-15); BUN 21 mg/dL (4-19); BUN/Creat Ratio 21.0 RATIO (10-20); Calcium,Total 9.1 mg/dL (7.6-11.0); Carbon Dioxide 21.5 mmol/L (21.0-32.0); Chloride 107 mmol/L (98-108); Glucose 141 mg/dL (70-99); Potassium 4.2 mmol/L (3.3-5.1)
--- OUTSIDE RECORDS SUMMARY | 2025-01-30 22:11 | XMS RPT_ITS | CCD ---
Author Organization [facility] Care Team Providers Care Thread Separator Name Role Phone Dr. Bayron Alvarez Primary Care Provider [phone] Dr. Po Chun Emergency Provider Dr. Jasmin Hurst Admit Provider [phone] Jasmin Hurst Other Provider [phone] Shaheen Mcfarland Attending Provider Dr. Shaheen Mfcarland Other Provider Aria Lamb Attending Unavailable Bayron Alvarez Referring Unavailable Bayron Alvarez Primary Care Unavailable Ankit Ogden Attending Unavailable Bayron Alvarez Primary Care Unavailable Bayron Alvarez Primary Care Unavailable Aria Lamb Referring Unavailable Aria Lamb Attending Unavailable Aria Lamb Referring Unavailable Aria Lamb Attending Unavailable Bayron Alvarez Primary Care Unavailable Medications Current Medications Medication Drug Class(es) Dates Sig (Normalized) Sig (Original) Vitamin B Complex (B-Complex) tablet (3 sources) Start: 05-19-2023 take 1 tablet by mouth once daily Vitamin B Complex (B-Complex) tablet Active 1 TABLET PO DAILY May 19, 2023 12:00am Problems Problem Classification Problem Date Documented Date Episodic/Chronic Cancer of prostate (6 sources) History of malignant neoplasm of prostate; Translations: [Personal history of malignant neoplasm of prostate] 05-19-2023 Episodic E Codes: Fall (6 sources) Fall; Translations: [Unspecified fall, initial encounter] 05-19-2023 Episodic Other connective tissue disease (3 sources) Muscle weakness; Translations: [Muscle weakness (generalized)] 05-19-2023 Episodic Other connective tissue disease (3 sources) Muscle weakness (generalized); Translations: [Muscle weakness (generalized)] 05-19-2023 Episodic Other nervous system disorders (3 sources) Difficulty walking; Translations: [Difficulty in walking, not elsewhere classified] 05-19-2023 Chronic Other nervous system disorders (3 sources) Difficulty in walking, not elsewhere classified; Translations: [Difficulty in walking] 05-19-2023 Chronic Unclassified (1 source) Other intervertebral disc degeneration, lumbar region without mention of lumbar back pain or lower extremity pain; Translations: [Other intervertebral disc degeneration, lumbar region without mention of lumbar back pain or lower extremity pain] Onset: 08-02-2024 Unclassified (1 source) Low back pain, unspecified; Translations: [Low back pain, unspecified] Onset: 08-01-2024 Viral infection (5 sources) Disease caused by 2019-nCoV; Translations: [COVID-19] 05-19-2023 Episodic Results Test Name Value Interpretation Reference Range Facility L/S Spine Min 4 Viewson 07-16 L/S Spine Min 4 Views [facility] Imaging Services [address] [place] [address] L/S Spine Min 4 Views MR#: [id number] Acct: [id number] Name: JAKE GUTIÉRREZ Rep #: [id number] : 1940 M 84 From: Pedro Canchola PCP: Dr. Bayron Alvarez MD Status: DEP AMB Study: L/S Spine Min 4 Views Date of Exam: 08/01/24 Exam# [id number] Ordering Dr: Aria Lamb PROCEDURE: Lumbar spine radiographs REASON FOR EXAM: Pain TECHNIQUE: Four views of the lumbar spine COMPARISON: None. FINDINGS: Vertebral body heights are within normal limits. Severe multilevel disc space narrowing with relative sparing at L5-S1. Mild to moderate/severe multilevel facet arthrosis, greatest at L4-L5. Mild lumbar kyphosis. Minimal dextroscoliosis. Sacroiliac joints are intact. RAD/L/S Spine Min 4 Views IMPRESSION: See above. Reading Location: [facility] CC: ALESSANDRO Alejandra; Dr. 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 Normal [facility] Orthopedic Visit Reporton Orthopedic Visit Report [facility] [address] [place] [address] OFFICE VISIT Date of Service: 08/01/24 MR#: [id number] Acct: [id number] Name: JAKE GUTIÉRREZ Rep #: [id number] : 1940 Provider: ALESSANDRO Alejandra Age/Sex: 84/M Location: [facility]PATTIE Status: Signed Intake Vital Signs 05/19/23 12:33 07/25/24 13:53 08/01/24 08:55 Height 6 ft 6 ft 6 ft Weight: 185 lb BMI 25.0 Intake Visit Reasons: LUMBAR SPINE Chief Complaint: lumbar spine Allergies No Known Allergies Allergy (Verified 05/19/23 10:28) Medications ???Medication ???Instructions ???Recorded ???Confirmed ???Type ibuprofen 200 mg capsule 200 mg PO Q6H PRN 08/01/24 5 History Have you fallen in the past year?: No PFSH Medical History COVID Eye trauma Bilateral cataracts Prostate cancer Surgical History History of back surgery Social History Smoking Status: Never smoker HPI LUMBAR SPINE Chief Complaint: lumbar spine Details: This documentation accurately reflects the service provided and the decisions made by me, ALESSANDRO Alejandra 08/01/24 0853. Part of today???s visit was documented by [ ], acting as scribe. JAKE GUTIÉRREZ is a 84 year old M here today for lumbar spine. Pt. advises he has been experiencing constant low back pain for 2 years. He describes it as a constant dull ache and intermittent sharp pain on the right side. He does think that it has worsened over the last 2 years. 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 He states he had a herniated disc in his low back but is unsure of which one. Patient is unsure what kind procedure he had done at this time. Says that after this procedure 30 years ago he has not had any back pain until the last 2 years. He denies new injury, numbness or tingling. Says that his pain will increase when he is outside working such as shoveling snow. He denies any pain in his legs and any pain in his legs after he is on his feet for a long period of time. He says he walks several miles a day especially when it is nice outside and that his walking distance has not decreased. He denies recent Xrays, MRI or PT. he denies any balance or dexterity issues. Says that he only takes 1 Advil per day because he does not want to become addicted. [facility] he did not go to any sessions due to being told by physical therapy it wouldn't improve his condition. No diabetes, no blood thinners, no heart or lung issues. Ortho Exam General General: Yes no acute distress Neurologic: Yes alert and Yes oriented x3 Spine SPINE TESTING CERVICAL THORACIC LUMBAR Musculoskeletal Strength 0=absent - 5=normal Details: Neurological exam of the lower extremities shows 5x5 power. Normal sensations across all dermatomes. No hyperreflexia. No midline and mild paraspinal tenderness. Physical examination of the back shows a well-healed midline incision. Chaparro's negative. Coding Level of Care Code Off vis,new,level 4 Diagnoses Degeneration of intervertebral disc of lumbar region with discogenic back pain M51.360 Disc-related pain type: discogenic back pain only Assessment and Plan Assessment and Plan (1) DDD (degenerative disc disease), lumbar: Status: Acute Qualifiers: Disc-related pain type: discogenic back pain only Qualified Code(s): M51.360 - Other intervertebral disc degeneration, lumbar region with discogenic back pain only Orders: Orders L/S Spine Min 4 Views Today M54.50 - Low back pain, unspecified Spine Lumbar (Routine) Today M51.369 - Other intervertebral disc degeneration, lumbar region without mention of lumbar back pain or lower extremity pain Referrals Pain Management M51.369 - Other intervertebral disc degeneration, lumbar region without mention of lumbar back pain or lower extremity pain PT Referral M51.369 - Other intervertebral disc degeneration, lumbar region without mention of lumbar back pain or lower extremity pain Plan And reviewed x-rays today with the patient. X-rays show a multilevel disc height loss throughout the lumbar back. No instability on flexion/extension views. Explained imaging findings in detail. At this time the patient says that over the last 2 years he has been dealing with low back pain and some occasional leg achiness, he does have a diagnosis of neuropathy. Says that the achiness is primarily below his knees. This axial low back pain that he has has limited what he is able to do during the day and he has to take increased amount of time to rest. At this time due to the 2-year history recomm (more content not included)... Normal [facility] Absolute lymphocyte countOrd ered By: Jasmin Clearymegan on 05-20-2023 Lymphocytes Auto (Unsp spec) [#/Vol] 1.11 10*3/uL 0.83-4.51 [facility] Basophil percentageOrdered B y: Jasmin Clearymegan on 05-20-2023 Basophils/100 WBC (Bld) 0.4 % 0-1 [facility] Chloride [Moles/Vol] 113 mmol/L 98-107 [facility] Eosinophils/100 WBC (Bld) 1.8 % 0-5 [facility] Glucose [Mass/Vol] 141 mg/dL 74-106 [facility] Comment on above: Fasting Glucose resu lt greater than or equal to 126 mg/dL suggests DIABETES MELLITUS per A.D.A. criteria. Neutrophils (Bld) [#/Vol] 6.0 10*3/uL 2.0-7.7 [facility] Neutrophils/100 WBC (Bld) 71.8 % 47-70 [facility] Potassium [Moles/Vol] 4.1 mmol/L 3.5-5.1 [facility] Sodium [Moles/Vol] 140 mmol/L 136-145 [facility] WBC (Bld) [#/Vol] 8.3 10*3/uL 4.4-11.0 [facility] Blood erythrocytes count (nu mber/volume)Ordered By: Jasmin Hurst on 05-20-2023 RBC (Bld) [#/Vol] 3.22 10*6/uL 4.6-6.2 [facility] Blood hemoglobin measurement (mass/volume)Ordered By: Jasmin Hurst on 05-20-2023 Hemoglobin (Bld) [Mass/Vol] 10.7 g/dL 13.0-16.5 [facility] Blood lymphocytes/100 leukoc ytesOrdered By: Jasmin Hurst on 05-20-2023 Lymphocytes/100 WBC (Bld) 13.4 % 19-41 [facility] Blood monocytes/100 leukocyt esOrdered By: Jasmin Hurst on 05-20-2023 Monocytes/100 WBC (Bld) 12.1 % 0-10 [facility] Blood platelet mean volumeOr dered By: Jasmin Hurst on 05-20-2023 Platelet mean volume (Bld) [Entitic vol] 8.9 fL 6.2-12.0 [facility] Determination of erythrocyte mean corpuscular volume (MCV)Ordered By: Jasmin Hurst on 05-20-2023 MCV (RBC) [Entitic vol] 101.9 fL 80-94 [facility] Hematocrit Auto (Bld) [Volum e fraction]Ordered By: Jasmin Hurst on 05-20-2023 Hematocrit (Bld) [Volume fraction] 32.8 % 40-54 [facility] Laboratory - Chemistry and C hemistry - challengeOrdered By: Jasminashutosh Hurst on 05-20-2023 CO2 [Moles/Vol] 23.0 mmol/L 21.0-32.0 [facility] Urea nitrogen/Creatinine [Mass ratio] 16.3 mg/mg 10-20 [facility] Laboratory - Hematology and Cell countsOrdered By: Jasmin Hurst on 05-20-2023 Erythrocyte distribution width (RBC) [Entitic vol] 49.0 fL 35.1-43.9 [facility] Erythrocyte distribution width (RBC) [Ratio] 13.0 % 11.6-14.6 [facility] Immature granulocytes/100 WBC (Bld) 0.500 % 0.0-0.9 [facility] Comment on above: IG% - Immature Granu locytes (promyelocytes, myelocytes and metamyelocytes) > 1% indicates that a LEFT SHIFT is Present. MCH (RBC) [Entitic mass] 33.2 pg 27.0-32.0 [facility] Nucleated RBC/100 WBC (Bld) [Ratio] 0 % 0-5 [facility] MCHC Auto (RBC) [Mass/Vol]Or dered By: Jasmin Hurst on 05-20-2023 MCHC (RBC) [Mass/Vol] 32.6 g/dL 32-36 [facility] No Panel InformationOrdered By: Jasmin Hurst on 05-20-2023 Estimated Creatinine Clearance Calc 61.59 ml/min [facility] Estimated GFR (MDRD) Amer 93 mL/min >60 [facility] Comment on above: GFR Calc Estimated GFR (MDRD) Non-Af Amer 77 mL/min >60 [facility] Comment on above: Non- GFR Calc Platelets bldOrdered By: Katherine Hurst on 05-20-2023 Platelets (Bld) [#/Vol] 165 10*3/uL 150-450 [facility] Serum or plasma calcium luis urement (mass/volume)Ordered By: Jasmin Hurst on 05-20-2023 Calcium [Mass/Vol] 8.4 mg/dL 8.5-10.1 [facility] Serum or plasma creatinine m easurement (mass/volume)Ordered By: Jasmin Hurst on 05-20-2023 Creatinine [Mass/Vol] 0.98 mg/dL 0.70-1.30 [facility] Comment on above: The validity of the calculated GFR & GFRAA in patients over 70 years has not been determined. Clinical correlation is essential. Serum or plasma urea nitroge n measurement (mass/volume)Ordered By: Jasmin Hurst on 05-20-2023 Urea nitrogen [Mass/Vol] 16 mg/dL 7-18 [facility] Thin prep Papanicolaou smear with manual screeningOrdered By: Jasmin Hurst on 05-20-2023 Thin prep Papanicolaou smear with manual screening 4 5-15 [facility] Absolute lymphocyte countOrd ered By: Po Chun on 05-19-2023 Lymphocytes Auto (Unsp spec) [#/Vol] 0.76 10*3/uL 0.83-4.51 [facility] Basophil percentageOrdered B y: Po Chun on 05-19-2023 Basophil percentage 0 SEEN /hpf 0-5 [facility] Basophils/100 WBC (Bld) 0.3 % 0-1 [facility] Bilirubin [Mass/Vol] 0.80 mg/dL 0.20-1.00 [facility] Comment on above: For patients on eltr ombopag therapy, use of Dimension [place] TBIL is not recommended. Chloride [Moles/Vol] 108 mmol/L 98-107 [facility] Eosinophils/100 WBC (Bld) 0.9 % 0-5 [facility] Glucose [Mass/Vol] 155 mg/dL 74-106 [facility] Comment on above: Fasting Glucose resu lt greater than or equal to 126 mg/dL suggests DIABETES MELLITUS per A.D.A. criteria. Neutrophils (Bld) [#/Vol] 8.2 10*3/uL 2.0-7.7 [facility] Neutrophils/100 WBC (Bld) 82.5 % 47-70 [facility] Potassium [Moles/Vol] 4.4 mmol/L 3.5-5.1 [facility] Protein [Mass/Vol] 7.2 g/dL 6.4-8.2 [facility] Sodium [Moles/Vol] 138 mmol/L 136-145 [facility] WBC (Bld) [#/Vol] 9.9 10*3/uL 4.4-11.0 [facility] Bilirubin Test strip Ql (U)O rdered By: Po Chun on 05-19-2023 Bilirubin Ql (U) Negative Negative [facility] Blood erythrocytes count (nu mber/volume)Ordered By: Po Chun on 05-19-2023 RBC (Bld) [#/Vol] 3.75 10*6/uL 4.6-6.2 [facility] Blood hemoglobin measurement (mass/volume)Ordered By: Po Chun on 05-19-2023 Hemoglobin (Bld) [Mass/Vol] 12.5 g/dL 13.0-16.5 [facility] Blood lymphocytes/100 leukoc ytesOrdered By: Po Chun on 05-19-2023 Lymphocytes/100 WBC (Bld) 7.7 % 19-41 [facility] Blood monocytes/100 leukocyt esOrdered By: Po Chun on 05-19-2023 Monocytes/100 WBC (Bld) 8.2 % 0-10 [facility] Blood platelet mean volumeOr dered By: Po Chun on 12-05-2023 Platelet mean volume (Bld) [Entitic vol] 8.8 fL 6.2-12.0 [facility] Determination of erythrocyte mean corpuscular volume (MCV)Ordered By: Po Chun on 05-19-2023 MCV (RBC) [Entitic vol] 100.3 fL 80-94 [facility] Hematocrit Auto (Bld) [Volum e fraction]Ordered By: Po Chun on 05-19-2023 Hematocrit (Bld) [Volume fraction] 37.6 % 40-54 [facility] Influenza virus A and B and SARS-CoV-2 (COVID-19) Ag panel - Upper respiratory specimOrdered By: Po Chun on 05-19-2023 SARS-CoV-2 & FLU Antigen (Rapid) SARS-CoV-2 (COVID 19) [facility] SARS-CoV-2 (COVID-19) RNA ED+probe Ql (Resp) [facility] Ketones Test strip Ql (U)Ord ered By: Po Chun on 05-19-2023 Ketones Ql (U) Negative Negative [facility] Laboratory - Chemistry and C hemistry - challengeOrdered By: Po Chun on 05-19-2023 ALP [Catalytic activity/Vol] 92 U/L 45-117 [facility] ALT [Catalytic activity/Vol] 18 U/L 16-61 [facility] CO2 [Moles/Vol] 27.0 mmol/L 21.0-32.0 [facility] Globulin (S) [Mass/Vol] 3.9 g/dL 2.2-4.2 [facility] Urea nitrogen/Creatinine [Mass ratio] 16.7 mg/mg 10-20 [facility] Laboratory - Hematology and Cell countsOrdered By: Po Chun on 05-19-2023 Erythrocyte distribution width (RBC) [Entitic vol] 47.0 fL 35.1-43.9 [facility] Erythrocyte distribution width (RBC) [Ratio] 12.8 % 11.6-14.6 [facility] Immature granulocytes/100 WBC (Bld) 0.400 % 0.0-0.9 [facility] Comment on above: IG% - Immature Granu locytes (promyelocytes, myelocytes and metamyelocytes) > 1% indicates that a LEFT SHIFT is Present. MCH (RBC) [Entitic mass] 33.3 pg 27.0-32.0 [facility] Nucleated RBC/100 WBC (Bld) [Ratio] 0 % 0-5 [facility] MCHC Auto (RBC) [Mass/Vol]Or dered By: Po Chun on 05-19-2023 MCHC (RBC) [Mass/Vol] 33.2 g/dL 32-36 [facility] Mucus LM Ql (Urine sed)Order ed By: Po Chun on 05-19-2023 Mucus Ql (Urine sed) 0 SEEN /hpf [facility] Nitrite Test strip Ql (U)Ord ered By: Po Chun on 05-19-2023 Nitrite Ql (U) Negative Negative [facility] No Panel InformationOrdered By: Po Chun on 05-19-2023 Estimated Creatinine Clearance Calc 55.66 ml/min [facility] Estimated GFR (MDRD) Amer 89 mL/min >60 [facility] Comment on above: GFR Calc Estimated GFR (MDRD) Non-Af Amer 74 mL/min >60 [facility] Comment on above: Non- GFR Calc Troponin I High Sensitivity 8 pg/mL 3.0-78.0 [facility] Comment on above: Please Note: New Magaly t Units and Gender Specific Reference Ranges. For more information see Policy Stat Procedure [place] High Sensitivity Troponin (TNIH) and attachments. Platelets bldOrdered By: Sj Chun on 05-19-2023 Platelets (Bld) [#/Vol] 190 10*3/uL 150-450 [facility] Protein Test strip Ql (U)Ord ered By: Po Chun on 05-19-2023 Protein Ql (U) 15 mg/dl Negative [facility] Serum or plasma albumin luis urement (mass/volume)Ordered By: Po Chun on 05-19-2023 Albumin [Mass/Vol] 3.3 g/dL 3.2-5.0 [facility] Serum or plasma albumin/glob ulin mass ratioOrdered By: Po Chun on 05-19-2023 Albumin/Globulin [Mass ratio] 0.8 {ratio} 0.9-2.4 [facility] Serum or plasma calcium luis urement (mass/volume)Ordered By: Po Chun on 05-19-2023 Calcium [Mass/Vol] 8.6 mg/dL 8.5-10.1 [facility] Serum or plasma creatinine m easurement (mass/volume)Ordered By: Po Chun on 05-19-2023 Creatinine [Mass/Vol] 1.02 mg/dL 0.70-1.30 [facility] Comment on above: The validity of the calculated GFR & GFRAA in patients over 70 years has not been determined. Clinical correlation is essential. Serum or plasma urea nitroge n measurement (mass/volume)Ordered By: Po Chun on 05-19-2023 Urea nitrogen [Mass/Vol] 17 mg/dL 7-18 [facility] Squamous epithelial cells de tection in urine sediment by light microscopyOrdered By: Po Chun on 05-19-2023 Epithelial cells.squamous LM Ql (Urine sed) 0 SEEN /hpf 0-5 [facility] Thin prep Papanicolaou smear with manual screeningOrdered By: Po Chun on 05-19-2023 Thin prep Papanicolaou smear with manual screening 12 U/L 15-37 [facility] Thin prep Papanicolaou smear with manual screening 3 5-15 [facility] Urine blood detectionOrdered By: Po Chun on 05-19-2023 RBC Ql (U) Negative Negative [facility] RBC Ql (U) 0 SEEN /hpf 0-5 [facility] Urine clarityOrdered By: Sj Chun on 05-19-2023 Clarity (U) Clear Clear [facility] Urine color determinationOrd ered By: Po Chun on 05-19-2023 Color (U) Yellow Yellow [facility] Urine glucose detectionOrder ed By: Po Chun on 05-19-2023 Glucose Ql (U) Normal mg/dl Normal [facility] Urine leukocyte esterase det ection by dipstickOrdered By: Po Chun on 05-19-2023 Leukocyte esterase Test strip Ql (U) Negative Negative [facility] Urine pHOrdered By: Po turcios on 05-19-2023 pH (U) 6.5 [pH] 5.0 - 8.0 [facility] Urine sediment bacteria coun t by microscopy (number/high power field)Ordered By: Po Chun on 05-19-2023 Bacteria LM.HPF (Urine sed) [#/Area] 0 /[HPF] None Seen [facility] Urine specific gravity measu rementOrdered By: Po Chun on 05-19-2023 Specific gravity (U) [Rel density] 1.015 1.002-1.030 [facility] Urobilinogen Auto test strip Ql (U)Ordered By: Po Chun on 05-19-2023 Urobilinogen Ql (U) Normal mg/dl Normal [facility] Vital Signs Date Time Vital Sign Value Performing Clinician Faci lity 05-20-2023 12:41-0500 Inhaled oxygen flow rate 0 L/min [facility] 05-20-2023 12:41-0500 SaO2% (BldA) [Mass fraction] 100 % [facility] 05-20-2023 12:29-0500 Body temperature 98.2 [degF] [facility] 05-20-2023 12:29-0500 Diastolic blood pressure 67 mm[Hg] [facility] 05-20-2023 12:29-0500 Heart rate 76 /min [facility] 05-20-2023 12:29-0500 Respiratory rate 16 /min [facility] 05-20-2023 12:29-0500 Systolic blood pressure 120 mm[Hg] [facility] 05-19-2023 12:33-0500 Body height 182.88 cm [facility] 05-19-2023 12:33-0500 Body mass index (BMI) [Ratio] 23.9 kg/m2 [facility] 05-19-2023 12:33-0500 Body weight 80 kg [facility] 05-19-2023 12:11-0500 Diastolic blood pressure 59 mm[Hg] [facility] 05-19-2023 12:11-0500 Heart rate 107 /min [facility] 05-19-2023 12:11-0500 Respiratory rate 16 /min [facility] 05-19-2023 12:11-0500 SaO2% (BldA) [Mass fraction] 97 % [facility] 05-19-2023 12:11-0500 Systolic blood pressure 117 mm[Hg] [facility] 05-19-2023 10:21-0500 Body height 177.8 cm [facility] 05-19-2023 10:21-0500 Body mass index (BMI) [Ratio] 29.6 kg/m2 [facility] 05-19-2023 10:050 Body temperature 99 [degF] [facility] 05-19-2023 10:050 Body weight 93.7 kg [facility] Hospital Encounters Encounter Date Encounter Type Care Provider Facility Start: 08-24-2024 ambulatory [facility] Adonis Facility:[facility] Start: 08-05-2024 ambulatory Bayron Alvarez Facility:[facility] Start: 08-01-2024 End: 08-01-2024 [facility] Start: 07-29-2023 End: 07-29-[address] Bayron Alvarez Work Phone: [facility] Work Phone: Start: 07-29-2023 End: 07-29-[address] Bayron Alvarez Work Phone: [facility] Work Phone: Start: 05-20-2023 Non-patient / Non-visit Dr. Alessandro Alvarez Work Phone: [facility] Work Phone: Start: 05-19-2023 End: 05-20-2023 Evaluation and management of inpatient [facility] Work Phone: Start: 05-19-2023 End: 05-20-2023 observation encounter [facility] Work Phone: Procedures Date Procedure Procedure Detail Performing Clinician Start: 05-19-2023 SARS-CoV-2 & FLU Ant igen (Rapid) Start: 05-19-[address] Bayron Alvarez Work Phone: Start: 05-19-2023 Plain chest X-ray Start: 05-19-2023 CT of head without contrast Plan of Treatment Date Care Activity Detail Author Start: 05-20-2023 Patient discharge [facility] Start: 05-19-2023 Following clinical p athway protocol [facility] Start: 12-05-2023 Assessment of risk o f venous thromboembolism [facility] Start: 05-19-2023 Fall prevention [facility] Start: 05-19-2023 Insertion of cathete r into peripheral vein [facility] Start: 05-19-2023 Providing care accor ding to standard [facility] Start: 05-19-2023 Provision of activity privileges [facility] Start: 05-19-2023 Referral to occupati onal therapist [facility] Start: 05-19-2023 Referral to service [facility] Start: 05-19-2023 Verification routine [facility] Start: 05-19-2023 Admission procedure [facility] Start: 05-19-2023 Hospital admission, emergency, from emergency room, medical nature [facility] Start: 05-19-2023 End: 05-19-2023 [facility] spital Bilirubin measurement, urine [facility] Hemoglobin [Presence] in Urine [facility] Measurement of keton es in urine using dipstick [facility] Microscopic urinalysis [facility] Patient referral [facility] Work Phone: pH of Urine [facility] Specific gravity of Urine [facility] Urinalysis, blood, qualitative [facility] Urine dipstick for glucose [facility] Urine dipstick for l eukocyte esterase [facility] Urine dipstick for nitrite [facility] Urine dipstick for protein [facility] Urine examination [facility] Urine microscopy: ep ithelial cells [facility] Urine Microscopy: white cells [facility] Urobilinogen [Presence] in Urine [facility] Immunizations Immunization Date Immunization Notes Care Provider Fa cility 08-02-2020 Covid (Moderna) [facility] 07-05-2020 Covid (Moderna) [facility] Payers Date Payer Category Payer Self-pay [id number] 2022 Medicare [id number] [employer] ( and others) [id number] Medicare ANTH MEDICARE SENIOR ADVANTA [id number] Medicare MEDICARE PART A B [id number] Unknown ANTHEM EXCHG HMO [id number] Unknown ANTHEM [id number] Unknown AARP MCR ADV [id number] Unknown [id number] Unknown [id number] Unknown [id number] Unknown [id number] Social History Date Type Detail Facility Start: 05-19-2023 End: 05-19-2023 Tobacco smoking status NHIS Unknown if ever smoked [facility] Start: 1940 Sex Assigned At Male [facility] Goals Date Patient Goal Desired Activity /State Functional Status Date Assessment Result Facility 05-20-2023 Functional status Ambulates [facility] Work Phone: Mental Status Date Assessment Result Facility 05-20-2023 Cognitive function Voice/Name [facility] Work Phone: 05-19-2023 Cognitive function Level Of Cons ciousness Awake;Alert;Appropriate;Follow s Commands [facility] Work Phone: Hospital Discharge instructions 05-20-2023 Note Date & Type Note Facility 05-20-2023 Hospital Discharg e instructions Additional Instructions Date of Discharge: 05/20/23 [facility] Work Phone: Consult note 05-20-2023 Note Date & Type Note Facility 05-20-2023 Consult note Note Date/Time May 20, 2023 11:53am [facility] Medical Records Department [address] [place] [address] Counseling Note - Pharmacy 05/20/23 1152 MR#: [id number] Acct: [id number] Name: ANAIS GUTIÉRREZCinthya Mendes Rep #:[id number] : 1940 83 From: Renee Felipe PCP: Dr. Bayron Alvarez MD Status:ADM I NO Y Location: [place] [address] [place] Med Reconciliation Pharmacy Service has performed discharge medication reconciliation for this patient. The patient's discharge medication list was reviewed for discrepancies and discrepancies were resolved. Medications at Discharge Home Medications vitamin B complex (B-Complex tablet) 1 tab PO DAILY 05/19/23 05/20/23 1153 <Electronically signed by Renee Felipe> Date _ Renee Felipe Cosigner Signature (if applicable): Date CC: ~ Signed [facility] Work Phone: Discharge summary 05-20-2023 Note Date & Type Note Facility 05-20-2023 Discharge summary Note Date/Time May 20, 2023 11:05am [facility] Medical Records Department [address] [place] [address] Instructions for Home/Discharge Instructions 05/20/23 1102 MR#: [id number] Acct: [id number] Name: ANAIS GUTIÉRREZCinthya Mendes Rep #:[id number] : 1940 83 From: Shaheen Mcfarland DO PCP: Dr. Bayron Alvarez MD Status:ADM I NO Discharge Instructions Diet Discharge Diet: No restrictions Activity Discharge Activity: Return to Normal Activity and - (Quarantine for a total of 7days from 05/19/2023) Weight Bearing Status: Full weight bearing Follow Up Care Test Results: Test results from this visit will be discussed in further detail at your follow-up appointment, if applicable. Discharge Plan Admission Admit Date/Time: 05/19/23 12:12 Primary Reason for Your Visit: covid-19 infection Attending Provider: Shaheen Mcfarland Primary Care Provider: Bayron Alvarez Consulting Providers: Jasmin Hurst Discharge Orders/Prescriptions Prescriptions: Continued vitamin B complex [B-Complex] Tablet 1 tab PO DAILY Referrals / Follow Up: Bayron Alvarez MD [Primary Care Provider] - See Referral Note (At next scheduled appointment time) Disposition Disposition (needs filled in before D/C Order can be placed): Home, Self Care 05/20/23 1106<Electronically signed by Shaheen Mcfarland DO>Shaheen Mcfarland DO CC: Dr. Jasmin Hurst MD; Dr. Bayron Alvarez MD ~ Signed [facility] Work Phone: Discharge summary 05-19-2023 Note Date & Type Note Facility 05-19-2023 Discharge summary Note Date/Time May 19, 2023 10:37am [facility] Medical Records Department [address] [place] [address] Emergency Department Summary 05/19/23 MR#: [id number] Acct: [id number] Name: JAKE GUTIÉRREZ Rep #:[id number] : 1940 83 From: Po Chun MD PCP: Dr. Bayron Alvarez MD Status:ADM I NO Location: [place] [address] HPI HPI - Fall History of Present Illness Chief Complaint: Fall Informant: patient and family (Daughter) Occured/Mechanism Occurred: Today Usually ambulates: Without assistance Pain/Injury Pain Location: none Current Severity: Mild Maximum Severity: Mild Associated Symptoms Associated Symptoms: Positive for Weakness; Negative for Parasthesias, Loss of function, Inability to ambulate, Loss of consciousness or Amnesia Narrative Narrative: 83-year-old male history of prior prostate cancer for which he underwent prostatectomy. Prior lumbar disc surgery 20 to 30 years ago. Very active gentleman. Walks 1 to 2 miles each day. Today just feels weak all over. He tried to get out of bed and he just lowered himself to the floor and was unable to get himself up. Brought in by squad. Denies any injuries from the fall. Norecent headaches. No chest pain or shortness of breath. He denies any recent fever or chills. He denies any recent nausea, vomiting or diarrhea. He denies any dysuria. Prior similar symptoms: No Recent Illness/Hospitalization: No PFSH PFSH Medical History Bilateral cataracts Eye trauma Prostate cancer Allergy/AdvReac Type Severity Reaction Status Date / Time No Known Allergies Allergy Verified 05/19/23 10:28 Surgical History History of back surgery Social History Smoking Status: Never smoker ROS ROS ED ROS Narrative Neurolyse weakness. Denies any recent illness. Review of Systems ROS Unobtainable: Denies due to encephalopathy Constitutional Constitutional ED: Denies chills or fever(s) Eyes Eyes: Denies blurry vision ENT ENT ED: Denies ear pain Cardiovascular Cardiovascular: Denies chest pain Respiratory/Chest Respiratory/Chest: Denies cough or dyspnea Gastrointestinal Gastrointestinal: Denies abdominal pain, constipation, diarrhea, melena, nausea or vomiting Genitourinary Genitourinary ED: Denies dysuria or hematuria Musculoskeletal Musculoskeletal: Reports back pain; Denies arthralgias Integumentary Denies abscess or Abrasions Neurologic Neurologic: Denies headache(s) Psychiatric Psychiatric: Denies anxiety Endocrine Endocrinology: Denies polydipsia Hematologic/Lymphatic Hematologic/Lymphatic: Denies easy bleeding or easy bruising Allergic/Immunologic Allergic/Immunologic ED: Denies mouth swelling or tongue swelling EXAM Physical Exam Narrative Exam Narrative: 83-year-old male. Vital signs stable afebrile. No acute distress. Daughter who is an RN is at bedside. H EENT exam unremarkable atraumatic. No facial droop. Normal speech. No trauma. Neck nontender. No lymphadenopathy. Lungs clear to auscultation bilaterally. Heart regular rhythm rate in the 90s. No murmur. Chest wall nontender. Abdomen soft nontender. Back nontender. No signs of trauma. Pelvic girdle intact. Moving all 4 extremities. Normal garment presser strength. Normal dorsi plantarflexion. No edema. Neurologically is awake and alert. Answering questions and following commands. Normal garment presser strength. Normal dorsi plantarflexion. No drift. Const Vital Signs: 05/19/23 10:21 05/19/23 10:49 05/19/23 10:49 Temperature 99 F Temperature Source Temporal Pulse Rate 99 Respiratory Rate 18 Respiratory Effort Normal Non-Labored Normal Non-Labored Respiratory Depth Normal Respiratory Pattern Normal Blood Pressure 130/78 H Blood Pressure Mean 95 Pulse Ox 99 97 Oxygen Delivery Method Room Air Room Air Positive well nourished and well developed; Negative for obese, cachectic, contractures or unkempt General Appearance ED: well developed and NAD; Negative for unkempt, cachectic or contractures Nutritional Appearance: Negative for cachectic or obese HEENT Reports normocephalic atraumatic; Negative for trauma, contusion, hematoma or tenderness Eyes PERRL and EOMs intact bilaterally General Eye ED: Negative for pale conjunctiva or scleral icterus Neck full ROM, no lymphadenopathy and supple General: Negative for tenderness Chest Wall inspection of chest normal and palpation of chest normal Chest: Negative for other Resp normal respiratory effort, no retractions and clear to auscultation bilaterally Effort and Inspection: Negative for pain with movement Auscultation: Negative for rales, rhonchi or wheezes Cardio regular rate, regular rhythm, S1 normal heart sound, S2 normal heart sound and no murmurs Rate: Negative for bradycardia or tachycardic Rhythm: Negative for abnormal rhythm Bruits: Negative for other GI non-tender, non-distended and no masses Inspection: Negative for abdominal distention Auscultation: normoactive bowel sounds Palpation: soft; Negative for guarding or rebound tenderness present Back/Spine no CVA tenderness General Back: Negative for CVA tenderness Cervical Spine: Negative for cervical spine tenderness Thoracic Spine / Upper Back: Negative for ROM limited Lumbar Spine / Lower Back: Negative for lumbar spinal tenderness Extremity Extremity Narrative: Moving all 4 extremities. Nontender no edema. Neuro oriented x3, CN's II-XII intact bilaterally, moves all extremities, no focal motor deficits and no sensory deficits noted Sensorium / Orientation: oriented to person, oriented to place and oriented to time; Negative for orientation impaired, confused, lethargic or stuporous Motor Exam: strength 5/5 throughout Psych mental status grossly normal and thought process normal Appearance: Negative for unkempt Attitude: No agitated Mood & Affect: Negative for depressed, anxious or tearful Skin General Skin Exam: Negative for other Lesions: no lesions Rashes: no rashes Trauma: Negative for abrasion or laceration MDM MDM MDM Narrative Medical decision making narrative: 83-year-old male with generalized weakness. He did not have any focal findings make me think this is a stroke. He basely try to get out of bed this morning and slid to the ground and was unable to get up. No injuries from that. Screening labs are being obtained. Repeat exam patient is doing well at 11:45 AM. We did try to walk him with a walker patient was very weak he needed a lot of assistance and he almost fell. We helped him back in bed. I will speak to the hospitalist about admission. Both the patient and his daughter are comfortable with the plan. History & Record Review Discussion w/independent historian: Patient Additional record(s) reviewed:: Prior inpatient record, Prior outpatient record,Prior ED visit and Prior labs Lab Data Attestation: I reviewed the patient's lab results. Lab results narrative: CBC shows a white count 9.9. H&H 12.5 and 37.6. Platelets 190. No prior CBC available for comparison. Chemistries show a gap of 3 normal BUN of 17 creatinine of 1. Glucose 155. Liver enzymes are normal. Troponin is normal at 8. Chest x-ray chronic changes no acute process. Rapid COVID-positive. Influenza negative. Labs: Laboratory Results - last 24 hr 05/19/23 10:40 WBC 9.9 RBC 3.75 L Hgb 12.5 L Hct 37.6 L MCV 100.3 H MCH 33.3 H MCHC 33.2 RDW Std Deviation 47.0 H RDW Coeff of Ernestina 12.8 Plt Count 190 MPV 8.8 Immature Gran % (Auto) 0.400 Neut % (Auto) 82.5 H Lymph % (Auto) 7.7 L Marion % (Auto) 8.2 Eos % (Auto) 0.9 Baso % (Auto) 0.3 Absolute Neuts (auto) 8.2 H Absolute Lymphs (auto) 0.76 L Nucleated RBC % 0 Sodium 138 Potassium 4.4 Chloride 108 H Carbon Dioxide 27.0 Anion Gap 3 L BUN 17 Creatinine 1.02 Estim Creat Clear Calc 55.66 Est GFR (MDRD) Af Amer 89 Est GFR (MDRD) Non-Af 74 BUN/Creatinine Ratio 16.7 Glucose 155 H Calcium 8.6 Total Bilirubin 0.80 AST 12 L ALT 18 Alkaline Phosphatase 92 Troponin I High Sens 8 Total Protein 7.2 Albumin 3.3 Globulin 3.9 Albumin/Globulin Ratio 0.8 L Radiography Chest X-Ray - ED: 1 View, Read by ED Physician, Heart, Lungs, Mediastinum, Bony Structures, No Acute Disease and Chronic Changes Diagnostic Testing: Clinical Impression(s) from Imaging Studies Chest X-Ray 05/19/23 10:55 IMPRESSION: Normal x-ray examination of the chest. Electronically Signed: Adis Carlisle MD at 11:26 EST Reading Location ID and State: [facility] / [place] , Service support , Chest x-ray, portable, single view interpreted by myself shows no acute abnormality. Normal cardiac silhouette. Normal lung oconnell. Rhythm Strip Rhythm Strip: Sinus Tach Rate: 101 Ectopy: None EKG Initial EKG: Attestation: I personally reviewed and interpreted this EKG as follows: Interpretation: No Acute Injury Pattern and Sinus Tachycardia Comments: Sinus tachycardia rate of 101 no acute signs of MA or ischemia. Discharge Plan Triage Chief Complaint: Fall ED Provider: Po Chun Dx/Rx/DC Orders Primary Care Provider: Bayron Alvarez Referrals: Bayron Alvarez MD [Primary Care Provider] - What to do if you have Problems For any increased pain, shortness of breath, bleeding, nausea or vomiting, chestpain, or any unexpected problems, contact your Primary Care Provider. Call [facility] ([phone]) or report to the closest Emergency Room. Call 911 if necessary. 05/19/23 1620 <Electronically signed by Po Chun MD> Cosigner Signature (if applicable): CC: Dr. Bayron Alvarez MD ~ Signed [facility] Work Phone: History and physical note 05-19-2023 Note Date & Type Note Facility 05-19-2023 History and physi yoni note Note Date/Time May 19, 2023 11:59am [facility] Medical Records Department [address] [place] [address] H&P Exam - Hospitalist 05/19/23 1153 MR#: [id number] Acct: [id number] Name: JAKE GUTIÉRREZ Rep #:[id number] : 1940 83 From: Jasmin Hurst MD PCP: Dr. Bayron Alvarez MD Status:ADM I NO [facility] HPI - General General Date of Admission: 05/19/23 Date of Service: 05/19/23 Chief Complaint: debility, mechanical fall HPI Narrative JAKE GUTIÉRREZ, is a 83 M with a PMH as outlined who presents via the ED on 05/19/2023 with a complaint of weakness and mechanical fall. He is usually very active and able to walk at least 1-2 miles every day. Today he felt very weak; he tried to to get out of bed but was very weak and so just lowered himself to the ground. He was unable to get up by himself, and family couldnt get him up either. His family therefore called in the squad and he was brought in to the ED. He denied any fever, chills, palpitations, dizziness, nausea, vomiting or any other symptoms. Review of systems is otherwise negaive. Vitals at time of review were temperature of 99 Fahrenheit with pulse rate of 99, blood pressure 130/78 and pulse ox of 97% on room air. CBC showed hemoglobin of 12.5 with WBC of 9.9 and platelets of 190. Chemistry was essentially unremarkable. COVID test was negative. Chest x-ray showed no acutecardiopulmonary process and brain CT showed no acute intracranial pathology. Hehas been admitted to be managed for debility and weakness likely due to COVID. [facility] Medical History Bilateral cataracts Eye trauma Prostate cancer Home Medications vitamin B complex (B-Complex tablet) 1 tab PO DAILY 05/19/23 [History Last Taken 05/19/23] Allergy/AdvReac Type Severity Reaction Status Date / Time No Known Allergies Allergy Verified 05/19/23 10:28 Surgical History History of back surgery Social History Smoking Status: Never smoker ROS Constitutional Constitutional: Reports fatigue, malaise and weakness; Denies anorexia, change in weight, chills or fever(s) Eyes Eyes: Denies change in vision ENT HEENT: Denies dysphagia or headache(s) Cardiovascular Cardiovascular: Denies chest pain, dyspnea on exertion, edema, lightheadedness, orthopnea, palpitations, paroxysmal nocturnal dyspnea or rapid heart rate Respiratory/Chest Respiratory/Chest: Denies cough, dyspnea, shortness of breath at rest or shortness of breath with exertion Gastrointestinal Gastrointestinal: Denies abdominal pain, constipation, diarrhea, nausea or vomiting Genitourinary Genitourinary: Denies burning urination, difficulty urinating or dysuria Musculoskeletal Musculoskeletal: Denies arthralgias or back pain Neurologic Neurologic: Denies dizziness, focal weakness, headache(s) or numbness Psychiatric Psychiatric: Denies anxiety Hematologic/Lymphatic Hematologic/Lymphatic: Denies anemia Vital Signs Vital Signs Vital Signs: 05/19/23 10:21 05/19/23 10:49 05/19/23 10:49 Temperature 99 F Temperature Source Temporal Pulse Rate 99 Respiratory Rate 18 Respiratory Effort Normal Non-Labored Normal Non-Labored Respiratory Depth Normal Respiratory Pattern Normal Blood Pressure 130/78 H Blood Pressure Mean 95 Pulse Ox 99 97 Oxygen Delivery Method Room Air Room Air Weight Weight: 206 lb 9.17 oz Body Mass Index (BMI) 29.6 Physical Exam Const alert, oriented x3 and no apparent distress General Appearance: cooperative HEENT normocephalic, head/scalp atraumatic, hearing grossly normal bilaterally and moist oral mucous membranes Mouth: oral and palatal mucosa normal Eyes PERRL, EOMs intact bilaterally and conjunctivae normal Neck no lymphadenopathy and supple Resp normal respiratory effort, no retractions, no use of accessory muscles and clearto auscultation bilaterally Resp Narrative: on room air. Cardio regular rate, regular rhythm, S1 normal heart sound, S2 normal heart sound and no murmurs GI normal to inspection, nondistended, normoactive bowel sounds, soft to palpation,non-tender and non-distended Extremity normal to inspection, full ROM and no clubbing, cyanosis or edema Neuro oriented x3, CN's II-XII intact bilaterally, moves all extremities and no focal motor deficits Sensorium / Orientation: awake and alert Motor Exam: strength 5/5 throughout Psych affect normal Results Lab / Micro Data 05/19/23 10:40 05/19/23 10:40 Labs: Laboratory Results - last 24 hr 05/19/23 10:40: WBC 9.9, RBC 3.75 L, Hgb 12.5 L, Hct 37.6 L, MCV 100.3 H, MCH 33.3 H, MCHC 33.2, RDW Std Deviation 47.0 H, RDW Coeff of Ernestina 12.8, Plt Count 190, MPV 8.8, Immature Gran % (Auto) 0.400, Neut % (Auto) 82.5 H, Lymph % (Auto)7.7 L, Marion % (Auto) 8.2, Eos % (Auto) 0.9, Baso % (Auto) 0.3, Absolute Neuts (auto) 8.2 H, Absolute Lymphs (auto) 0.76 L, Nucleated RBC % 0, Sodium 138, Potassium 4.4, Chloride 108 H, Carbon Dioxide 27.0, Anion Gap 3 L, BUN 17, Creatinine 1.02, Estim Creat Clear Calc 55.66, Est GFR (MDRD) Af Amer 89, Est GFR (MDRD) Non-Af 74, BUN/Creatinine Ratio 16.7, Glucose 155 H, Calcium 8.6, Total Bilirubin 0.80, AST 12 L, ALT 18, Alkaline Phosphatase 92, Troponin I HighSens 8, Total Protein 7.2, Albumin 3.3, Globulin 3.9, Albumin/Globulin Ratio 0.8L Micro: Microbiology 05/19/23 10:41 Nasal Secretion SARS-CoV-2 & FLU Antigen (Rapid) - Final Rhythm Strip Rhythm Strip: Sinus Tach Rate: 101 Ectopy: None Imagaing Radiology Impression Chest X-Ray 05/19/23 10:55 IMPRESSION: Normal x-ray examination of the chest. Electronically Signed: Adis Carlisle MD at 11:26 EST , Assessment & Plan Assessment/Plan (1) Fall: (2) Difficulty in walking: (3) COVID: PLAN: Plan #Debility and weakness * Likely due to COVID-19 infection. Currently on room air. * [place] very weak today. He is usually very active and able to walk at least 1 to 2 miles daily. * Admit to MedSurg under observation. * Hydrate gently with IV fluids. Consult PT OT. Fall precautions. * #COVID-19 infection: Asymptomatic. On room air. Will hold off on Decadron and remdesivir as he is on room air. #History of remote prostate cancer s/p prostatectomy: Stable DVT prophylaxis: Lovenox CODE STATUS: full code * Patient counseled extensively about different types of CODE STATUS including full code, DNR CCA and DNR CCA. Patient elects to be full code. Total [id number] time 16 minutes. Charges/Coding Visit Charges Inpatient E&M: 55620 Init Hosp L2 Procedures Hospitalists Procedures: 26188 Advncd Care Plan 30 Min 05/19/23 1600 <Electronically signed by Jasmin Hurst MD> Cosigner Signature (if applicable): CC: Dr. Jasmin Hurst MD; Dr. Bayron Alvarez MD~ Signed [facility] Work Phone: Evaluation note Note Date & Type Note Facility Evaluation note Diagnosis Onset Date COVID acute Difficulty in walking acute Fall acute Generalized muscle weakness acute Hx of prostatic malignancy a cute [facility] Work Phone: Evaluation note Note Date & Type Note Facility Evaluation note Diagnosis Onset Date Hx of prostatic malignancy a cute Difficulty in walking resolv ed Fall resolved Generalized muscle weakness resolved [facility] Work Phone: Chief Complaint and Reason for Visit Chief Complaint fall Reason for Visit COVID Difficulty in walking Fall Generalized muscle weakness Hx of prostatic malignancy Chief Complaint DEBILITY AND WEAKNES S / COVID INFECTION Reason for Visit COVID Difficulty in walking Fall Generalized muscle weakness Hx of prostatic malignancy Chief Complaint DEBILITY AND WEAKNES S / COVID INFECTION DEBILITY AND WEAKNESS / COVID INFECTION Pain in right leg Reason for Visit Hx of prostatic leatha gnancy Difficulty in walking Fall Generalized muscle weakness Advance Directives No Advanced Directives Records Found Advance Directive Response Recorded Date/ Time Living Will Yes May 19 10:29am Power of Acute Care Physical Therapist No May 19, 2023 10:29am Advance Directive Response Recorded Date/ Time Living Will No May 19 12:33pm Power of Acute Care Physical Therapist No May 19, 2023 12:33pm Summary Purpose Family History No Family History Records Found Additional Source Comments Care Teams (unrecognized sec tion and content) Team Status: Active Member Role Status Dates Dr. Bayron Alvarez MD Family Provider Active Dr. Bayron Alvarez MD Primary Care Provider Active Team Status: Active Member Role Status Dates Dr. Bayron Alvarez MD Primary Care Provider Active Dr. Po Chun MD Referring Provider, Emergency Pro vider Active Dr. Jasmin Hurst MD Admit Provider, Attending Prov ider Active Team Status: Inactive Member Role Status Dates Dr. Bayron Alvarez MD Primary Care Provider Active Dr. Po Chun MD Referring Provider, Emergency Pro vider Active Dr. Jasmin Hurst MD Admit Provider, Other Provider Active Dr. Shaheen Mcfarland DO Attending Provider Active Team Status: Active Member Role Status Dates Dr. Bayron Alvarez MD Primary Care Provider Active Dr. Po Chun MD Emergency Provider Active Dr. Jasmin Hurst MD Admit Provider, Other Provider Active Dr. Shaheen Mcfarland DO Attending Provider, Other Pro vider Active Team Status: Inactive Member Role Status Dates Dr. Bayron Alvarez MD Primary Care Provi faith, Attending Provider, Referring Provider Active Goals (unrecognized section and content) Goals may be documented in a n alternate section (unrecognized sect ion and content) No Status Records Found INFORMATION SOURCE (unrecogn ized section and content) DATE CREATED AUTHOR 08/04/2024 [facility] FOR RECORDS PERTAINING TO PATIENTS WHO ARE OR HAVE BEEN ENROLLED IN A CHEMICAL DEPENDENCY/SUBSTANCEABUSE PROGRAM, SOME INFORMATION MAY BE OMITTED. This clinical summary was aggregated from multiple sources. Caution should be exercised in using it in the provision of clinical care. This summary normalizes information from multiple sources, and as a consequence, information in this document may materially change the coding, format and clinical context of patient data. In addition, data may be omitted in some cases. CLINICAL DECISIONS SHOULD BE BASED ON THE PRIMARY CLINICAL RECORDS. [employer] provides no warranty or guarantee of the accuracy or completeness of information in this document.
== END | disposition home or self-care (01) ==
LOC: MFPLAB 10:47
PROVIDERS: PCP Family Medicine; Visit Provider Family Medicine
DX: R73.09 Other abnormal glucose (principal)
CPT/HCPCS: 36415; 80048; 83036

== ENCOUNTER → 2025-03-10 | Outpatient (CLI) | payer MEDICARE, SELFPAY ==
--- OUTSIDE RECORDS SUMMARY | 2025-03-10 11:19 | XMS RPT_ITS | CCD ---
Author Organization [facility] Care Team Providers Care Asphalt Smoother Name Role Phone Dr. Bayron Alvarez Primary Care Provider Dr. Po Chun Emergency Provider Dr. Jasmin Hurst Admit Provider [phone] Jasmin Hurst Other Provider Dr. Shaheen Mcfarland Attending Provider Dr. Shaheen Mcfarland Other Provider Dr. Bayron Alvarez MD Primary Care Provider Kim PRABHAKAR, Dr. Verma Attending Provider Bayron Alvarez Attending Unavailable Bayron Alvarez Referring Unavailable Bayron Alvarez Primary Care Unavailable Bayron Alvarez Primary Care Unavailable Aria Lamb Attending Unavailable Aria Lamb Referring Unavailable Ankit Ogden Attending Unavailable Bayron Alvarez Primary Care Unavailable Bayron Alvarez Primary Care Unavailable Bayron Alvarez Referring Unavailable Aria Lamb Attending Unavailable Bayron Alvarez Attending Unavailable Kim, Bayron Primary Care Unavailable rAia Lamb Attending Unavailable Aria Lamb Referring Unavailable Kim, Bayron Primary Care Unavailable Medications Current Medications Medication Drug Class(es) Dates Sig (Normalized) Sig (Original) ibuprofen 200 mg oral capsule (1 source) Nonsteroidal Anti-inflammatory Drug Start: 08-01-2024 take 1 capsule by mouth every six hours as needed Ibuprofen 200 mg capsule Active 200 mg PO EVERY 6 HOURS as needed August 01, 2024 1:00am Completed/Discontinued Medications Medication Drug Class(es) Dates Sig (Normalized) Sig (Original) Vitamin B Complex (B-Complex) tablet (4 sources) Start: 05-19-2023 End: 08-01-2024 Vitamin B Complex (B-Complex) tablet Discontinued 1 {tbl} PO DAILY May 19, 2023 1:00am August 01, 2024 9:57am Start: 05-19-2023 take 1 tablet by fadia th once daily Vitamin B Complex (B-Complex) tablet Active 1 TABLET PO DAILY May 19, 2023 12:00am Problems Problem Classification Problem Date Documented Date Episodic/Chronic Cancer of prostate (7 sources) History of malignant neoplasm of prostate; Translations: [Personal history of malignant neoplasm of prostate] 05-19-2023 Episodic Diabetes mellitus without complication (1 source) Other abnormal glucose; Translations: [Other abnormal glucose] Onset: 02-03-2025 Episodic E Codes: Fall (7 sources) Fall; Translations: [Unspecified fall, initial encounter] 05-19-2023 Episodic Other connective tissue disease (4 sources) Muscle weakness; Translations: [Muscle weakness (generalized)] 05-19-2023 Episodic Other connective tissue disease (3 sources) Muscle weakness (generalized); Translations: [Muscle weakness (generalized)] 05-19-2023 Episodic Other nervous system disorders (4 sources) Difficulty walking; Translations: [Difficulty in walking, not elsewhere classified] 05-19-2023 Chronic Other nervous system disorders (3 sources) Difficulty in walking, not elsewhere classified; Translations: [Difficulty in walking] 05-19-2023 Chronic Spondylosis; intervertebral disc disorders; other back problems (1 source) Degeneration of lumbar intervertebral disc; Translations: [Degeneration of intervertebral disc of lumbar region] 08-01-2024 Chronic Spondylosis; intervertebral disc disorders; other back problems (1 source) Sciatica, right side; Translations: [Sciatica, right side] Onset: 03-07-2025 Episodic Unclassified (1 source) Other intervertebral disc degeneration, lumbar region without mention of lumbar back pain or lower extremity pain; Translations: [Other intervertebral disc degeneration, lumbar region without mention of lumbar back pain or lower extremity pain] Onset: 08-02-2024 Unclassified (1 source) Low back pain, unspecified; Translations: [Low back pain, unspecified] Onset: 08-01-2024 Viral infection (6 sources) Disease caused by 2019-nCoV; Translations: [COVID-19] 05-19-2023 Episodic Results Test Name Value Interpretation Reference Range Facility Anion gap in Serum or Plasma Ordered By: Bayron Alvarez on 01-30-2025 Anion gap [Moles/Vol] 11 mmol/L 5- [facility] BUN/creatinine ratioOrdered By: Bayron Alvarez on 01-30-2025 Urea nitrogen/Creatinine [Mass ratio] 21.0 mg/mg High - [facility] Basic Metabolic Profile (BMP )on 01-30-2025 BUN/CRE 21.0 RATIO High 04-03 [facility] Comment on above: Performed By: #### L 500.2500, L501.9985 #### [facility] [address] [place], [address] Calcium [Mass/Vol] 9.1 mg/dL Normal 7.6-11.0 [facility] Comment on above: Performed By: #### L 500.2500, L501.9985 #### [facility] [address] [place], [address] Chloride [Moles/Vol] 107 mmol/L Normal 98-108 [facility] Comment on above: Performed By: #### L 500.2500, L501.9985 #### [facility] [address] [place], [address] CO2 [Moles/Vol] 21.5 mmol/L Normal 21.0-32.0 [facility] Comment on above: Performed By: #### L 500.2500, L501.9985 #### [facility] [address] [place], [address] Creatinine [Mass/Vol] 0.98 mg/dL Normal 0.70-1.20 [facility] Comment on above: Performed By: #### L 500.2500, L501.9985 #### [facility] [address] [place], [address] GAP 11 Normal -15 [facility] Comment on above: Performed By: #### L 500.2500, L501.9985 #### [facility] [address] [place], [address] GFR/1.73 sq M.predicted among non-blacks MDRD (S/P/Bld) [Vol rate/Area] 75 mL/min/{1.73_m2} Normal >60 [facility] Comment on above: Result Comment: mL/m in/1.73m2 CKD-EPI Creatinine Equation (2020) Performed By: #### L 500.2500, L501.9985 #### [facility] [address] [place], [address] Glucose [Mass/Vol] 141 mg/dL High 70-99 [facility] Comment on above: Performed By: #### L 500.2500, L501.9985 #### [facility] [address] [place], [address] Potassium [Moles/Vol] 4.2 mmol/L Normal 3.3-5.1 [facility] Comment on above: Performed By: #### L 500.2500, L501.9985 #### [facility] [address] [place], [address] Sodium [Moles/Vol] 140 mmol/L Normal 133-145 [facility] Comment on above: Performed By: #### L 500.2500, [id number] #### [facility] [address] [place], [address] Urea nitrogen [Mass/Vol] 21 mg/dL High 4-19 [facility] Comment on above: Performed By: #### L 500.2500, [id number] #### [facility] [address] [place], [address] Carbon dioxide, total [Moles /volume] in Central venous bloodOrdered By: Bayron Alvarez on 01-30-2025 CO2 [Moles/Vol] 21.5 mmol/L 21.0-32.0 [facility] Chloride assayOrdered By: Alessandro Alvarez on 01-30-2025 Chloride [Moles/Vol] 107 mmol/L 98-108 [facility] Glomerular filtration rate ( GFR) estimation/1.73 sq m using serum, plasma, or whole bOrdered By: Bayron Alvarez on 01-30-2025 GFR/1.73 sq M.predicted among non-blacks MDRD (S/P/Bld) [Vol rate/Area] 75 mL/min/{1.73_m2} >60 [facility] Comment on above: mL/min/1.73m2 CKD-EP I Creatinine Equation (2020) Hemoglobin A1con 01-30-2025 HbA1c (Bld) [Mass fraction] 6.6 % High <=5.6 [facility] Comment on above: Result Comment: Norm al < 5.7 % Prediabetic 5.7 - 6.4 % Diabetic >or= 6.5 % Please note range changes. Performed By: #### L 500.2500, L501.9985 #### [facility] [address] [place] [address]. [place], [place], [address] Hemoglobin A1c percentageOrd ered By: Bayron Alvarez on 01-30-2025 HbA1c (Bld) [Mass fraction] 6.6 % High <5.7 [facility] Comment on above: Normal < 5.7 % Predi abetic 5.7 - 6.4 % Diabetic >or= 6.5 % Please note range changes. Potassium measurement (mass/ volume)Ordered By: Bayron Alvarez on 01-30-2025 Potassium (Unsp spec) [Mass/Vol] 4.2 mmol/L 3.3-5.1 [facility] Serum creatinine measurement (mass/volume)Ordered By: Bayron Alvarez on 01-30-2025 Creatinine [Mass/Vol] 0.98 mg/dL 0.70-1.20 [facility] Serum glucose measurement (m ass/volume)Ordered By: Bayron Alvarez on 01-30-2025 Glucose [Mass/Vol] 141 mg/dL High 70-99 [facility] Serum or plasma calcium luis urement (mass/volume)Ordered By: Bayron Alvarez on 01-30-2025 Calcium [Mass/Vol] 9.1 mg/dL 7.6-11.0 [facility] Serum or plasma urea nitroge n measurement (mass/volume)Ordered By: Bayron Alvarez on 01-30-2025 Urea nitrogen [Mass/Vol] 21 mg/dL High 4-19 [facility] Sodium levelOrdered By: Bayron Alvarez on 01-30-2025 Sodium [Moles/Vol] 140 mmol/L 133-145 [facility] L/S Spine Min 4 Viewson 07-16 L/S Spine Min 4 Views [facility] Services [address] [place], [place] [address] L/S Spine Min 4 Views MR#: [id number] Acct: [id number] Name: JAKE GUTIÉRREZ Rep #: [id number] : 1940 M 84 From: Pedro Canchola PCP: Dr. Bayron Alvarez MD Status: DEP AMB Study: L/S Spine Min 4 Views Date of Exam: 08/01/24 Exam# [id number] Ordering Dr: Aria Lamb PROCEDURE: Lumbar spine [...] CC: ALESSANDRO Alejandra; Dr. 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 He states he had a herniated disc [...] history recomm (more content not included)... Normal [facility] Absolute lymphocyte countOrd ered By: Jasmin Hurst on 05-20-2023 Lymphocytes Auto (Unsp spec) [#/Vol] 1.11 10*3/uL 0.83-4.51 [facility] Basophil percentageOrdered B y: Jasmin Hurst on 05-20-2023 Basophils/100 WBC (Bld) 0.4 % 0-1 [facility] Chloride [Moles/Vol] 113 mmol/L 98-107 [facility] Eosinophils/100 WBC (Bld) 1.8 % 0-5 [facility] Glucose [Mass/Vol] 141 mg/dL 74-106 [facility] Comment on above: Fasting Glucose resu lt greater than or equal to 126 mg/dL suggests DIABETES MELLITUS per A.D.A. criteria. Neutrophils (Bld) [#/Vol] 6.0 10*3/uL 2.0-7.7 [facility] Neutrophils/100 WBC (Bld) 71.8 % 47-70 [facility] Potassium [Moles/Vol] 4.1 mmol/L 3.5-5.1 [facility] Sodium [Moles/Vol] 140 mmol/L 136-145 [facility] WBC (Bld) [#/Vol] 8.3 10*3/uL 4.4-11.0 [facility] Blood erythrocytes count (nu mber/volume)Ordered By: Jasmin Hurst on 05-20-2023 RBC (Bld) [#/Vol] 3.22 10*6/uL 4.6-6.2 [facility] Blood hemoglobin measurement (mass/volume)Ordered By: Jasmin Hurst on 05-20-2023 Hemoglobin (Bld) [Mass/Vol] 10.7 g/dL 13.0-16.5 [facility] Blood lymphocytes/100 leukoc ytesOrdered By: Jasmin Hurst on 05-20-2023 Lymphocytes/100 WBC (Bld) 13.4 % 19-41 [facility] Blood monocytes/100 leukocyt esOrdered By: Jasmin Hurst on 05-20-2023 Monocytes/100 WBC (Bld) 12.1 % 0-10 [facility] Blood platelet mean volumeOr dered By: Jasmin Hurst on 05-20-2023 Platelet mean volume (Bld) [Entitic vol] 8.9 fL 6.2-12.0 [facility] Determination of erythrocyte mean corpuscular volume (MCV)Ordered By: Jasmin Hurst on 05-20-2023 MCV (RBC) [Entitic vol] 101.9 fL 80-94 [facility] Hematocrit Auto (Bld) [Volum e fraction]Ordered By: Jasmin Hurst on 05-20-2023 Hematocrit (Bld) [Volume fraction] 32.8 % 40-54 [facility] - Chemistry and C hemistry - challengeOrdered By: Jasminashutosh Hurst on 05-20-2023 CO2 [Moles/Vol] 23.0 mmol/L 21.0-32.0 [facility] Urea nitrogen/Creatinine [Mass ratio] 16.3 mg/mg 10-20 [facility] - Hematology and Cell countsOrdered By: Jasminashutosh Hurst on 05-20-2023 Erythrocyte distribution width (RBC) [Entitic vol] 49.0 fL 35.1-43.9 [facility] Erythrocyte distribution width (RBC) [Ratio] 13.0 % 11.6-14.6 [facility] Immature granulocytes/100 WBC (Bld) 0.500 % 0.0-0.9 [facility] Comment on above: IG% - Immature Granu locytes (promyelocytes, myelocytes and metamyelocytes) > 1% indicates that a LEFT SHIFT is Present. MCH (RBC) [Entitic mass] 33.2 pg 27.0-32.0 [facility] Nucleated RBC/100 WBC (Bld) [Ratio] 0 % 0-5 [facility] MCHC Auto (RBC) [Mass/Vol]Or dered By: Jasmin Hurst on 05-20-2023 MCHC (RBC) [Mass/Vol] 32.6 g/dL 32-36 [facility] No Panel InformationOrdered By: Jasmin Hurst on 05-20-2023 Estimated Creatinine Clearance Calc 61.59 ml/min [facility] Estimated GFR (MDRD) Amer 93 mL/min >60 [facility] Comment on above: GFR Calc Estimated GFR (MDRD) Non-Af Amer 77 mL/min >60 [facility] Comment on above: Non- GFR Calc Platelets bldOrdered By: Katherine Hurst on 05-20-2023 Platelets (Bld) [#/Vol] 165 10*3/uL 150-450 [facility] Serum or plasma calcium luis urement (mass/volume)Ordered By: Jasmin Hurst on 05-20-2023 Calcium [Mass/Vol] 8.4 mg/dL 8.5-10.1 [facility] Serum or plasma creatinine m easurement (mass/volume)Ordered By: Jasmin Hurst on 05-20-2023 Creatinine [Mass/Vol] 0.98 mg/dL 0.70-1.30 [facility] Comment on above: The validity of the calculated GFR & GFRAA in patients over 70 years has not been determined. Clinical correlation is essential. Serum or plasma urea nitroge n measurement (mass/volume)Ordered By: Jasmin Hurst on 05-20-2023 Urea nitrogen [Mass/Vol] 16 mg/dL 7-18 [facility] Thin prep Papanicolaou smear with manual screeningOrdered By: Jasmin Hurst on 05-20-2023 Thin prep Papanicolaou smear with manual screening 4 5-15 [facility] Absolute lymphocyte countOrd ered By: Po Chun on 05-19-2023 Lymphocytes Auto (Unsp spec) [#/Vol] 0.76 10*3/uL 0.83-4.51 [facility] Basophil percentageOrdered B y: Po Chun on 05-19-2023 Basophil percentage 0 SEEN /hpf 0-5 [facility] Basophils/100 WBC (Bld) 0.3 % 0-1 [facility] Bilirubin [Mass/Vol] 0.80 mg/dL 0.20-1.00 [facility] Comment on above: For patients on eltr ombopag therapy, use of Dimension [place] TBIL is not recommended. Chloride [Moles/Vol] 108 mmol/L 98-107 [facility] Eosinophils/100 WBC (Bld) 0.9 % 0-5 [facility] Glucose [Mass/Vol] 155 mg/dL 74-106 [facility] Comment on above: Fasting Glucose resu lt greater than or equal to 126 mg/dL suggests DIABETES MELLITUS per A.D.A. criteria. Neutrophils (Bld) [#/Vol] 8.2 10*3/uL 2.0-7.7 [facility] Neutrophils/100 WBC (Bld) 82.5 % 47-70 [facility] Potassium [Moles/Vol] 4.4 mmol/L 3.5-5.1 [facility] Protein [Mass/Vol] 7.2 g/dL 6.4-8.2 [facility] Sodium [Moles/Vol] 138 mmol/L 136-145 [facility] WBC (Bld) [#/Vol] 9.9 10*3/uL 4.4-11.0 [facility] Bilirubin Test strip Ql (U)O rdered By: Po Chun on 05-19-2023 Bilirubin Ql (U) Negative Negative [facility] Blood erythrocytes count (nu mber/volume)Ordered By: Po Chun on 05-19-2023 RBC (Bld) [#/Vol] 3.75 10*6/uL 4.6-6.2 [facility] Blood hemoglobin measurement (mass/volume)Ordered By: Po Chun on 05-19-2023 Hemoglobin (Bld) [Mass/Vol] 12.5 g/dL 13.0-16.5 [facility] Blood lymphocytes/100 leukoc ytesOrdered By: Po Chun on 05-19-2023 Lymphocytes/100 WBC (Bld) 7.7 % 19-41 [facility] Blood monocytes/100 leukocyt esOrdered By: Po Chun on 05-19-2023 Monocytes/100 WBC (Bld) 8.2 % 0-10 [facility] Blood platelet mean volumeOr dered By: Po Chun on 05-19-2023 Platelet mean volume (Bld) [Entitic vol] 8.8 fL 6.2-12.0 [facility] Determination of erythrocyte mean corpuscular volume (MCV)Ordered By: Po Chun on 05-19-2023 MCV (RBC) [Entitic vol] 100.3 fL 80-94 [facility] Hematocrit Auto (Bld) [Volum e fraction]Ordered By: Po Chun on 05-19-2023 Hematocrit (Bld) [Volume fraction] 37.6 % 40-54 [facility] Influenza virus A and B and SARS-CoV-2 (COVID-19) Ag panel - Upper respiratory specimOrdered By: Po Chun on 05-19-2023 SARS-CoV-2 & FLU Antigen (Rapid) SARS-CoV-2 (COVID 19) [facility] SARS-CoV-2 (COVID-19) RNA ED+probe Ql (Resp) [facility] Ketones Test strip Ql (U)Ord ered By: Po Chun on 05-19-2023 Ketones Ql (U) Negative Negative [facility] - Chemistry and C hemistry - challengeOrdered By: Po Chun on 05-19-2023 ALP [Catalytic activity/Vol] 92 U/L 45-117 [facility] ALT [Catalytic activity/Vol] 18 U/L 16-61 [facility] CO2 [Moles/Vol] 27.0 mmol/L 21.0-32.0 [facility] Globulin (S) [Mass/Vol] 3.9 g/dL 2.2-4.2 [facility] Urea nitrogen/Creatinine [Mass ratio] 16.7 mg/mg 10-20 [facility] - Hematology and Cell countsOrdered By: Po Chun on 05-19-2023 Erythrocyte distribution width (RBC) [Entitic vol] 47.0 fL 35.1-43.9 [facility] Erythrocyte distribution width (RBC) [Ratio] 12.8 % 11.6-14.6 [facility] Immature granulocytes/100 WBC (Bld) 0.400 % 0.0-0.9 [facility] Comment on above: IG% - Immature Granu locytes (promyelocytes, myelocytes and metamyelocytes) > 1% indicates that a LEFT SHIFT is Present. MCH (RBC) [Entitic mass] 33.3 pg 27.0-32.0 [facility] Nucleated RBC/100 WBC (Bld) [Ratio] 0 % 0-5 [facility] MCHC Auto (RBC) [Mass/Vol]Or dered By: Po Chun on 05-19-2023 MCHC (RBC) [Mass/Vol] 33.2 g/dL 32-36 [facility] Mucus LM Ql (Urine sed)Order ed By: Po Chun on 05-19-2023 Mucus Ql (Urine sed) 0 SEEN /hpf [facility] Nitrite Test strip Ql (U)Ord ered By: Po Chun on 05-19-2023 Nitrite Ql (U) Negative Negative [facility] No Panel InformationOrdered By: Po Chun on 05-19-2023 Estimated Creatinine Clearance Calc 55.66 ml/min [facility] Estimated GFR (MDRD) Amer 89 mL/min >60 [facility] Comment on above: GFR Calc Estimated GFR (MDRD) Non-Af Amer 74 mL/min >60 [facility] Comment on above: Non- GFR Calc Troponin I High Sensitivity 8 pg/mL 3.0-78.0 [facility] Comment on above: Please Note: New Magaly t Units and Gender Specific Reference Ranges. For more information see Policy Stat Procedure [place] High Sensitivity Troponin (TNIH) and attachments. Platelets bldOrdered By: Sj Chun on 05-19-2023 Platelets (Bld) [#/Vol] 190 10*3/uL 150-450 [facility] Protein Test strip Ql (U)Ord ered By: Po Chun on 05-19-2023 Protein Ql (U) 15 mg/dl Negative [facility] Serum or plasma albumin luis urement (mass/volume)Ordered By: Po Chun on 05-19-2023 Albumin [Mass/Vol] 3.3 g/dL 3.2-5.0 [facility] Serum or plasma albumin/glob ulin mass ratioOrdered By: Po Chun on 05-19-2023 Albumin/Globulin [Mass ratio] 0.8 {ratio} 0.9-2.4 [facility] Serum or plasma calcium luis urement (mass/volume)Ordered By: Po Chun on 05-19-2023 Calcium [Mass/Vol] 8.6 mg/dL 8.5-10.1 [facility] Serum or plasma creatinine m easurement (mass/volume)Ordered By: Po Chun on 05-19-2023 Creatinine [Mass/Vol] 1.02 mg/dL 0.70-1.30 [facility] Comment on above: The validity of the calculated GFR & GFRAA in patients over 70 years has not been determined. Clinical correlation is essential. Serum or plasma urea nitroge n measurement (mass/volume)Ordered By: Po Chun on 05-19-2023 Urea nitrogen [Mass/Vol] 17 mg/dL 7-18 [facility] Squamous epithelial cells de tection in urine sediment by light microscopyOrdered By: Po Chun on 05-19-2023 Epithelial cells.squamous LM Ql (Urine sed) 0 SEEN /hpf 0-5 [facility] Thin prep Papanicolaou smear with manual screeningOrdered By: Po Chun on 05-19-2023 Thin prep Papanicolaou smear with manual screening 12 U/L 15-37 [facility] Thin prep Papanicolaou smear with manual screening 3 5-15 [facility] Urine blood detectionOrdered By: Po Chun on 05-19-2023 RBC Ql (U) Negative Negative [facility] RBC Ql (U) 0 SEEN /hpf 0-5 [facility] Urine clarityOrdered By: Sj Chun on 05-19-2023 Clarity (U) Clear Clear [facility] Urine color determinationOrd ered By: Po Chun on 05-19-2023 Color (U) Yellow Yellow [facility] Urine glucose detectionOrder ed By: Po Chun on 05-19-2023 Glucose Ql (U) Normal mg/dl Normal [facility] Urine leukocyte esterase det ection by dipstickOrdered By: Po Chun on 05-19-2023 Leukocyte esterase Test strip Ql (U) Negative Negative [facility] Urine pHOrdered By: Po turcios on 05-19-2023 pH (U) 6.5 [pH] 5.0 - 8.0 [facility] Urine sediment bacteria coun t by microscopy (number/high power field)Ordered By: Po Chun on 05-19-2023 Bacteria LM.HPF (Urine sed) [#/Area] 0 /[HPF] None Seen [facility] Urine specific gravity measu rementOrdered By: Po Chun on 05-19-2023 Specific gravity (U) [Rel density] 1.015 1.002-1.030 [facility] Urobilinogen Auto test strip Ql (U)Ordered By: Po Chun on 05-19-2023 Urobilinogen Ql (U) Normal mg/dl Normal [facility] Vital Signs Date Time Vital Sign Value Performing Clinician Faci lity 05-20-2023 12:41-0500 Inhaled oxygen flow rate 0 L/min [facility] 05-20-2023 12:41-0500 SaO2% (BldA) [Mass fraction] 100 % [facility] 05-20-2023 12:29-0500 Body temperature 98.2 [degF] [facility] 05-20-2023 12:29-0500 Diastolic blood pressure 67 mm[Hg] [facility] 05-20-2023 12:29-0500 Heart rate 76 /min [facility] 05-20-2023 12:29-0500 Respiratory rate 16 /min [facility] 05-20-2023 12:29-0500 Systolic blood pressure 120 mm[Hg] [facility] 05-19-2023 12:33-0500 Body height 182.[address] [facility] 05-19-2023 12:33-0500 Body mass index (BMI) [Ratio] 23.9 kg/m2 [facility] 05-19-2023 12:33-0500 Body weight [address] [facility] 05-19-2023 12:11-0500 Diastolic blood pressure 59 mm[Hg] [facility] 05-19-2023 12:11-0500 Heart rate 107 /min [facility] 05-19-2023 12:11-0500 Respiratory rate 16 /min [facility] 05-19-2023 12:11-0500 SaO2% (BldA) [Mass fraction] 97 % [facility] 05-19-2023 12:11-0500 Systolic blood pressure 117 mm[Hg] [facility] 05-19-2023 10:21-0500 Body height 177.[address] [facility] 05-19-2023 10:21-0500 Body mass index (BMI) [Ratio] 29.6 kg/m2 [facility] 05-19-2023 10:21-0500 Body temperature 99 [degF] [facility] 05-19-2023 10:21-0500 Body weight 93.[address] [facility] Encounters Encounter Date Encounter Type Care Provider Facility Start: 03-15-2025 ambulatory Bayron Alvarez Facility:[facility] Start: 01-30-2025 End: 01-30-[address] Bayron Alvarez MD Work Phone: -[facility] Start: 01-30-2025 End: 01-30-[address] Bayron Alvarez MD -[facility] Start: 01-30-2025 End: 01-30-2025 ambulatory Bayron Alvarez Facility:[facility] Start: 08-24-2024 ambulatory Ariamary Lamb Facility:[facility] Start: 08-05-2024 ambulatory Bayron Alvarez Facility:[facility] Start: 08-01-2024 End: 08-01-2024 ambulatory Bayron Alvarez Facility:[facility] Start: 07-29-2023 End: 07-29-[address] [facility] [facility] Work Phone: Start: 07-29-2023 End: 07-29-[address] Bayron Alvarez Work Phone: [facility] Work Phone: Start: 05-20-2023 Non-patient / Non-visit Dr. Alessandro Alvarez Work Phone: [facility] [facility] Work Phone: Start: 05-19-2023 End: 05-20-2023 Evaluation and management of inpatient [facility] Work Phone: Start: 05-19-2023 End: 05-20-2023 observation encounter [facility] Work Phone: Procedures Date Procedure Procedure Detail Performing Clinician Start: 05-19-2023 SARS-CoV-2 & FLU Ant igen (Rapid) Start: 05-19-[address] Bayron Alvarez Work Phone: Start: 05-19-2023 Plain chest X-ray Start: 05-19-2023 CT of head without contrast Plan of Treatment Date Care Activity Detail Author Start: 05-20-2023 Patient discharge [facility] Start: 05-19-2023 Following clinical p athway protocol [facility] Start: 05-19-2023 Assessment of risk o f venous thromboembolism [facility] Start: 05-19-2023 Fall prevention [facility] Start: 05-19-2023 Insertion of cathete r into peripheral vein [facility] Start: 05-19-2023 Providing care accor ding to standard [facility] Start: 05-19-2023 Provision of activity privileges [facility] Start: 05-19-2023 Referral to occupati onal therapist [facility] Start: 05-19-2023 Referral to service [facility] Start: 05-19-2023 Verification routine [facility] Start: 05-19-2023 Admission procedure [facility] Start: 05-19-2023 Hospital admission, emergency, from emergency room, medical nature [facility] Start: 05-19-2023 End: 05-19-2023 [facility] Bilirubin measurement, urine [facility] Hemoglobin [Presence] in Urine [facility] Measurement of keton es in urine using dipstick [facility] Microscopic urinalysis [facility] Patient referral [facility] Work Phone: pH of Urine [facility] Specific gravity of Urine [facility] Urinalysis, blood, qualitative [facility] Urine dipstick for glucose [facility] Urine dipstick for l eukocyte esterase [facility] Urine dipstick for nitrite [facility] Urine dipstick for protein [facility] Urine examination [facility] Urine microscopy: ep ithelial cells [facility] Urine Microscopy: white cells [facility] Urobilinogen [Presence] in Urine [facility] Immunizations Immunization Date Immunization Notes Care Provider Fa cility 08-02-2020 Covid (Moderna) [facility] 07-05-2020 [facility] Payers Date Payer Category Payer Self-pay [id number] 2022 Medicare [id number] [employer] ( and others) [id number] Medicare ANTHEM MEDICARE SENIOR ADVANTA [id number] Medicare MEDICARE PART A B [id number] Unknown [id number] Unknown ANTHEM [id number] Unknown AARP MCR ADV [id number] Unknown [id number] Unknown [id number] Unknown [id number] Unknown [id number] Unknown [id number] Unknown [id number] Social History Date Type Detail Facility Start: 05-19-2023 End: 05-19-2023 Tobacco smoking status NHIS Unknown if ever smoked [facility] Start: 1940 Sex Assigned At Male [facility] Start: 07-25-2024 Tobacco smoking stat us NHIS Never smoked tobacco (finding) [facility] Goals Date Patient Goal Desired Activity /State Functional Status Date Assessment Result Facility 05-20-2023 Functional status Ambulates [facility] Work Phone: Mental Status Date Assessment Result Facility 05-20-2023 Cognitive function Voice/Name [facility] Work Phone: 05-19-2023 Cognitive function Level Of Cons ciousness Awake;Alert;Appropriate;Follow s Commands [facility] Work Phone: Hospital Discharge instructions 05-20-2023 Note Date & Type Note Facility 05-20-2023 Hospital Discharg e instructions Additional Instructions Date of Discharge: 05/20/23 [facility] Work Phone: Consult note 05-20-2023 Note Date & Type Note Facility 05-20-2023 Consult note Note Date/Time May 20, 2023 11:53am [facility] Medical Records Department [address] [place] [address] Counseling Note - Pharmacy 05/20/23 1152 MR#: [id number] Acct: [id number] Name: JAKE GUTIÉRREZ Rep #:[id number] : 1940 83 From: Renee Felipe PCP: Dr. Bayron Alvarez MD Status:ADM I NO Y Location: [place] [address] Pharmacy [place] Med Reconciliation Pharmacy Service has performed discharge medication reconciliation for this patient. The patient's discharge medication list was reviewed for discrepancies and discrepancies were resolved. Medications at Discharge Home Medications vitamin B complex (B-Complex tablet) 1 tab PO DAILY 05/19/23 05/20/231152 <Electronically signed by Renee Felipe> Date _ Renee Felipe Cosigner Signature (if applicable): Date CC: ~ Signed [facility] Work Phone: Discharge summary 05-20-2023 Note Date & Type Note Facility 05-20-2023 Discharge summary Note Date/Time May 20, 2023 11:05am [facility] Medical Records Department [address] [place] [address] Instructions for Home/Discharge Instructions 05/20/23 1102 MR#: [id number] Acct: [id number] Name: JAKE GUTIÉRREZ Rep #:[id number] : 1940 83 From: Shaheen Mcfarland DO PCP: Dr. Baryon Alvarez MD Status:ADM I NO Discharge Instructions [...] MD; Dr. Bayron Alvarez MD ~ Signed [facility] Work Phone: Discharge summary 05-19-2023 Note Date & Type Note Facility 05-19-2023 Discharge summary Note Date/Time May 19, 2023 10:37am [facility] Medical Records Department [address] [place] [address] Emergency Department Summary 05/19/23 MR#: [id number] Acct: [id number] Name: JAKE GUTIÉRREZ Rep #:[id number] : 1940 83 From: Po Chun MD PCP: Dr. Bayron Alvarez MD Status:ADM I NO Location: [place] [address] HPI HPI - Fall History of Present [...] Prior similar symptoms: No Recent [facility] Medical History Bilateral cataracts Eye trauma Prostate [...] girdle intact. Moving all 4 extremities. Normal qi specialist strength. Normal dorsi plantarflexion. No edema. Neurologically is awake and alert. Answering questions and following commands. Normal qi specialist strength. Normal dorsi plantarflexion. No drift. Const [...] 82.5 H Lymph % (Auto) 7.7 L [place] % (Auto) 8.2 Eos % (Auto) 0.9 [...] Adis Carlisle MD at 11:26 EST , Chest x-ray, portable, single view interpreted by myself shows no acute abnormality. Normal cardiac silhouette. Normal lung oconnell. Rhythm Strip Rhythm Strip: Sinus Tach Rate: 101 Ectopy: None EKG Initial EKG: Attestation: I personally reviewed and interpreted this EKG as follows: Interpretation: No Acute Injury Pattern and Sinus Tachycardia Comments: Sinus tachycardia rate of 101 no acute signs of DE or ischemia. Discharge Plan Triage Chief Complaint: Fall ED Provider: Po Chun Dx/Rx/DC Orders Primary Care Provider: Bayron Alvarez Referrals: Bayron Alvarez MD [Primary Care Provider] - What to do if you have Problems For any increased pain, shortness of breath, bleeding, nausea or vomiting, chestpain, or any unexpected problems, contact your Primary Care Provider. Call [facility] ([phone]) or report to the closest Emergency Room. Call 911 if necessary. 05/19/23 1620 <Electronically signed by Po Chun MD> Cosigner Signature (if applicable): CC: Dr. Bayron Alvarez MD ~ Signed [facility] Work Phone: History and physical note 05-19-2023 Note Date & Type Note Facility 05-19-2023 History and physi yoni note Note Date/Time May 19, 2023 11:59am [facility] Medical Records Department [address] [place] [address] H&P Exam - Hospitalist 05/19/23 1153 MR#: [id number] Acct: [id number] Name: JAKE GUTIÉRREZ Rep #:[id number] : 1940 83 From: Jasmin Hurst MD PCP: Dr. Bayron Alvarez MD Status:ADM I NO Location: [place] [address] HPI - General General Date of Admission: [...] weakness likely due to COVID. [facility] Medical History Bilateral cataracts Eye trauma Prostate [...] (Auto) 82.5 H, Lymph % (Auto)7.7 L, [place] % (Auto) 8.2, Eos % (Auto) 0.9, [...] COVID-19 infection. Currently on room air. * [place] very weak today. He is usually very [...] Patient elects to be full code. Total [id number]-[id number] time 16 minutes. Charges/Coding Visit Charges Inpatient E&M: 97755 Init Hosp L2 Procedures Hospitalists Procedures: 42070 Advncd Care Plan 30 Min 05/19/23 1600 <Electronically signed by Jasmin Hurst MD> Cosigner Signature (if applicable): CC: Dr. Jasmin Hurst MD; Dr. Bayron Alvarez MD~ Signed [facility] Work Phone: Evaluation note Note Date & Type Note Facility Evaluation note Diagnosis Onset Date COVID acute Difficulty in walking acute Fall acute Generalized muscle weakness acute Hx of prostatic malignancy a cute [facility] Work Phone: Evaluation note Note Date & Type Note Facility Evaluation note Diagnosis Onset Date Hx of prostatic malignancy a cute Difficulty in walking resolv ed Fall resolved Generalized muscle weakness resolved [facility] Work Phone: Evaluation note Note Date & Type Note Facility Evaluation note No assessment information availa ble [facility] Work Phone: Reason for referral (narrative) Note Date & Type Note Facility Reason for referral (narrative) No reason for referral information available [facility] Work Phone: Chief Complaint and Reason [...] Will Yes May 19 10:29am Power of Valet Parking Attendant No May 19, 2023 10:29am Advance Directive Response Recorded Date/ Time Living Will No May 19 12:33pm Power of Valet Parking Attendant No May 19, 2023 12:33pm Summary Purpose [...] Provi faith, Attending Provider, Referring Provider Active Team Status: Active Member Role/Relationship Status Dates Dr. Bayron Alvarez MD Primary Care Provider Active Team Status: Inactive Member Role/Relationship Status Dates Dr. Bayron Alvarez MD Primary Care Provider Active Start: January 30, 2025 End: January 30, 2025 Dr. Bayron Alvarez MD Attending Provider Active Start: January 30, 2025 End: January 30, 2025 Goals (unrecognized section and content) Goals may be documented in a n alternate sectionGoals may be documented in an alternate section (unrecognized sect ion and content) No Status Records Found INFORMATION SOURCE (unrecogn ized section and content) DATE CREATED AUTHOR 03/08/[address] [facility] FOR RECORDS PERTAINING TO PATIENTS WHO ARE [...] BE BASED ON THE PRIMARY CLINICAL RECORDS. [employer] [facility]. provides no warranty or guarantee of the accuracy or completeness of information in this document.
--- NOTE | 2025-03-10 11:50 | MRI_ITS ---
PROCEDURE: SPINE LUMBAR (ROUTINE) 03/10/2025 REASON FOR EXAM: SCIATICA,RIGHT SIDE TECHNIQUE: Procedure Code: MRISPL Modality: MR Procedure: SPINE LUMBAR (ROUTINE) COMPARISON: None available. FINDINGS: For the purposes of this report, the most caudal rectangular vertebral body will be designated L5. The next most caudal trapezoidal shaped vertebral body will be designated S1. The intervening disc at the lumbosacral angle is designated L5-S1. Straightening of the cervical lordosis. The lumbar vertebral bodies are normal in height. No significant spondylolisthesis. No focal bone marrow replacing lesion in the lumbar spine. Multilevel disc desiccation. Advanced multilevel intervertebral disc space height loss with relative sparing at L5-S1. There is no evidence of signal abnormality in the imaged distal spinal cord. The conus medullaris terminates at the level of T12-L1. T12-L1: Disc bulge, bilateral facet arthrosis, and ligamentum flavum hypertrophy contribute to mild spinal canal stenosis. Moderate bilateral neural foraminal narrowing. L1-L2: Disc bulge, posterior osteophyte, bilateral facet arthrosis, and ligamentum flavum hypertrophy contribute to mild spinal canal stenosis. Moderate bilateral neural foraminal narrowing. L2-L3: Posterior osteophyte, bilateral facet arthrosis, and ligamentum flavum hypertrophy contribute to mild spinal canal stenosis and subarticular zone narrowing. There is crowding of the bilateral traversing nerve roots. Mild bilateral neural foraminal narrowing. Type 2 Modic endplate changes. L3-L4: Disc bulge, posterior osteophyte, bilateral facet arthrosis, and ligamentum flavum hypertrophy contributes to mild spinal canal stenosis. Mild bilateral neural foraminal narrowing. Type 2 Modic endplate changes. L4-L5: Disc bulge, posterior osteophyte, bilateral facet arthrosis, and ligamentum flavum hypertrophy contribute to mild spinal canal stenosis and subarticular zone narrowing. Severe right and moderate left neural foraminal narrowing. Type 2 Modic endplate changes. L5-S1: Disc bulge, bilateral facet arthrosis, and ligamentum flavum hypertrophy. Mild spinal canal stenosis. Moderate bilateral neural foraminal narrowing. Fatty atrophy of the posterior Partially visualized large right renal cyst. MRI/Spine Lumbar (Routine) IMPRESSION: Multilevel lumbar spondylosis without high-grade spinal canal stenosis. Modera [id number] neural foraminal stenosis at L4-L5. Reading Location: [id number]
== END | disposition home or self-care (01) ==
PROVIDERS: PCP Family Medicine; Referring Provider Family Medicine; Visit Provider Family Medicine
DX: M54.31 Sciatica, right side (principal)
CPT/HCPCS: 72148

== ENCOUNTER → 2025-05-12 | Outpatient (CLI) | payer MEDICARE, SELFPAY ==
--- OUTSIDE RECORDS SUMMARY | 2025-05-12 10:24 | XMS RPT_ITS | CCD ---
Author Organization [facility] Care Team Providers Care Seismic Computer Name Role Phone Dr. Bayron Alvarez Primary Care Provider Dr. Po Chun Emergency Provider Dr. Jasmin Hurst Admit Provider Dr. Jasmin Hurst Other Provider Dr. Shaheen Mcfarland Attending Provider Dr. Shaheen Mcfarland Other Provider Dr. Bayron Alvarez MD Primary Care Provider [phone] Dr. Bayron Alvarez MD Attending Provider Bayron Alvarez Referring Unavailable Kim, Bayron Primary Care Unavailable Adonis, Aria Attending Unavailable Kim, Bayron Referring Unavailable Alvarez, Bayron Attending Unavailable Alvarez, Bayron Primary Care Unavailable Alvarez, Bayron Attending Unavailable Alvarez, Bayron Primary Care Unavailable Adonis, Aria Referring Unavailable Adonis, Aria Attending Unavailable Alvarez, Bayron Primary Care Unavailable Adonis, Aria Referring Unavailable Adonis, Aria Attending Unavailable Kim, Bayron Primary Care Unavailable Alvarez, Bayron Primary Care Unavailable Alvarez, Bayron Referring Unavailable Vern Charles Attending Unavailable Alvarez, Bayron Primary Care Unavailable Alin, [place] Attending Unavailable Dr. Bayron Alvarez MD Primary Care Physician [phone] Dr. Bayron Alvarez MD Attending Physician Dr. Bayron Alvarez MD Referring Provider Dr. Vern Charles MD Attending Physician Medications Current Medications Medication Drug Class(es) Dates Sig (Normalized) Sig (Original) Jenison (Nk) (2 sources) Start: 03-24-2025 Jenison (Nk) A ctive March 24, 2025 12:00am Completed/Discontinued Medications Medication Drug Class(es) Dates Sig (Normalized) Sig (Original) ibuprofen 200 mg oral capsule (3 sources) Nonsteroidal Anti-inflammatory Drug Start: 08-01-2024 End: 03-24-2025 take 1 capsule by mouth every six hours as needed Ibuprofen 200 mg capsule Discontinued 200 mg PO EVERY 6 HOURS as needed August 01, 2024 1:00am March 24, 2025 10:02am Vitamin B Complex (B-Complex) tablet (6 sources) Start: 05-19-2023 End: 08-01-2024 Vitamin B Complex (B-Complex) tablet Discontinued 1 {tbl} PO DAILY May 19, 2023 1:00am August 01, 2024 9:57am Start: 05-19-2023 take 1 tablet by fadia th once daily Vitamin B Complex (B-Complex) tablet Active 1 TABLET PO DAILY May 19, 2023 12:00am Problems Problem Classification Problem Date Documented Date Episodic/Chronic Cancer of prostate (9 sources) History of malignant neoplasm of prostate; Translations: [Personal history of malignant neoplasm of prostate] 05-19-2023 Episodic Diabetes mellitus without complication (1 source) Other abnormal glucose; Translations: [Other abnormal glucose] Onset: 02-03-2025 Episodic E Codes: Fall (9 sources) Fall; Translations: [Unspecified fall, initial encounter] 05-19-2023 Episodic Other connective tissue disease (6 sources) Muscle weakness; Translations: [Muscle weakness (generalized)] 05-19-2023 Episodic Other connective tissue disease (3 sources) Muscle weakness (generalized); Translations: [Muscle weakness (generalized)] 05-19-2023 Episodic Other nervous system disorders (6 sources) Difficulty walking; Translations: [Difficulty in walking, not elsewhere classified] 05-19-2023 Chronic Other nervous system disorders (3 sources) Difficulty in walking, not elsewhere classified; Translations: [Difficulty in walking] 05-19-2023 Chronic Spondylosis; intervertebral disc disorders; other back problems (7 sources) Degeneration of lumbar intervertebral disc; Translations: [Degeneration of intervertebral disc of lumbar region] 08-01-2024 Chronic Spondylosis; intervertebral disc disorders; other back problems (5 sources) Sciatica, right side; Translations: [Stenosis of lumbar vertebral foramen] Onset: 03-24-2025 03-24-2025 Episodic Unclassified (1 source) Other intervertebral disc degeneration, lumbar region with discogenic back pain only; Translations: [Other intervertebral disc degeneration, lumbar region with discogenic back pain only] Onset: 03-24-2025 Unclassified (1 source) Other intervertebral disc degeneration, lumbar region without mention of lumbar back pain or lower extremity pain; Translations: [Other intervertebral disc degeneration, lumbar region without mention of lumbar back pain or lower extremity pain] Onset: 08-02-2024 Unclassified (1 source) Low back pain, unspecified; Translations: [Low back pain, unspecified] Onset: 08-01-2024 Unclassified (2 sources) M51.360 - Other intervertebral disc degeneration, lumbar region with discogenic back pain only Viral infection (8 sources) Disease caused by 2019-nCoV; Translations: [COVID-19] 05-19-2023 Episodic Results Test Name Value Interpretation Reference Range Facility Orthopedic Visit Reporton Orthopedic Visit Report [facility] [address] [place] [address] OFFICE VISIT Date of Service: 03/24/25 MR#: [id number] Acct: [id number] Name: JAKE GUTIÉRREZ Rep #: [id number] : 1940 Provider: Dr. Vern Charles MD Age/Sex: 85/M Location: [facility] [place] Status: Signed Intake Vital Signs 08/01/24 08:55 Height 6 ft Intake Visit Reasons: LUMBAR SPINE Chief Complaint: MRI Review Accompanied by: Self Is patient in pain?: Yes Allergies No Known Allergies Allergy (Verified 03/24/25 10:01) Medications ???Medication ???Instructions ???Recorded ???Confirmed ???Type NK 03/24/25 03/24/25 History Have you fallen in the past year?: No [facility] Medical History (Updated 03/24/25 @ 10:59 by Marti Keenan RN) Foraminal stenosis of lumbar region COVID Eye trauma Bilateral cataracts Prostate cancer Surgical History History of back surgery Social History Smoking Status: Never smoker HPI LUMBAR SPINE Details: This documentation accurately reflects the service provided and the decisions made by me, Dr. Vern Charles MD 03/24/25 0958. Part of today???s visit was documented by Galina Lepe ATC and Marti Keenan RN, acting as scribe. JAKE GUTIÉRREZ is a 85 year old M here today for MRI review. He states the pain has not gotten any better since his initial visit. He states all of his pain is in the lumbar spine and down the legs. He denies any specific injury. He did have a back surgery about 30 years ago for a herniated disc and the last couple of years the back started bothering him. He states if he sits for a prolonged period of time he can barely stand up. He notes he is unable to bend over. He describes the back as very weak. He denies any numbness or tingling down the legs but states it is an ache and occasionally will have sciatic pain down the legs. He denies any injections in the back. He states he has done physical therapy 2-3 different times and it did not give him any relief. He is able to walk long distances but states it is painful and he will have to stop and rub his back to help. He stats he can usually walk two miles. He is borderline diabetic and takes his blood glucose typically once per week, he is not on medications for this. He reports balance issues. The patient is an 85-year-old male presenting with chronic back pain and associated leg symptoms. The back pain has been persistent for many months and radiates down both legs, occasionally causing numbness in the feet. The patient reports that the pain worsens with certain positions and improves when the legs are lowered. The patient has a history of back surgery approximately 20-25 years ago, but no recent surgical interventions. He has not undergone physical therapy recently, although it was [facility] which [facility] a spinal curvature. The patient has not received any injections for the back pain. The MRI conducted on March 10 revealed degenerative changes with nerve impingement at the lower lumbar levels, contributing to the patient's symptoms. The patient is also noted to have borderline diabetes mellitus, which is monitored but not currently treated with medication. - Musculoskeletal: Reports chronic back pain radiating to legs, intermittent numbness in feet - Neurological: Reports numbness in feet, denies other neurological symptoms - Endocrine: Reports monitoring blood glucose levels, denies current treatment for diabetes Attestation: Documentation on this patient encounter was supported using ambient scribe technology/ voice AI technology. The patient consented to recording for the purpose of documenting the encounter. Provider reviewed content of the generated note prior to signature. 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 He states he had a herniated disc [...] nice outside and that his walking distance (more content not included)... Normal [facility] Magnetic resonance imaging r eportOrdered By: Francine Rosenberg on 03-13-2025 Study report [facility] Imaging Services [address] [place] [address] Spine Lumbar (Routine) MR#: [id number] Acct: [id number] Name: JAKE GUTIÉRREZ Rep #: [id number] : 1940 M 85 From: Darci Rosenberg MD PCP: Dr. Bayron Alvarez MD Status: GLORY BATISTA Study:Spine Lumbar (Routine) Date of Exam: 03/10/25 Exam# [id number] Ordering Dr: Bayron Alvarez MD PROCEDURE: SPINE LUMBAR (ROUTINE) 03/10/2025 REASON FOR EXAM: SCIATICA,RIGHT SIDE TECHNIQUE: Procedure Code: MRISPL Modality: MR Procedure: SPINE LUMBAR (ROUTINE) COMPARISON: None available. FINDINGS: For the purposes of this report, the most caudal rectangular vertebral body willbe designated L5. The next most caudal trapezoidal shaped vertebral body will be designated S1. The intervening disc atthe lumbosacral angle is designated L5-S1. Straightening of the cervical lordosis. The lumbar vertebral bodies are normal in height. No significant spondylolisthesis. No focal bone marrow replacing lesion in the lumbar spine. Multilevel disc desiccation. Advanced multilevel intervertebral disc space height loss with relative sparing at L5-S1. There is no evidence of signal abnormality in the imaged distal spinal cord. The conus medullaris terminates at the level of T12-L1. T12-L1: Disc bulge, bilateral facet arthrosis, and ligamentum flavum hypertrophycontribute to mild spinal canal stenosis. Moderate bilateral neural foraminal narrowing. L1-L2: Disc bulge, posterior osteophyte, bilateral facet arthrosis, and ligamentum flavum hypertrophy contribute to mild spinal canal stenosis. Moderate bilateral neural foraminal narrowing. L2-L3: Posterior osteophyte, bilateral facet arthrosis, and ligamentum flavum hypertrophy contribute to mild spinal canal stenosis and subarticular zone narrowing. There is crowding of the bilateral traversing nerve roots. Mild bilateral neural foraminal narrowing. Type 2 Modic endplate changes. L3-L4: Disc bulge, posterior osteophyte, bilateral facet arthrosis, and ligamentum flavum hypertrophy contributes to mild spinal canal stenosis. Mild bilateral neural foraminal narrowing. Type 2 Modic endplate changes. L4-L5: Disc bulge, posterior osteophyte, bilateral facet arthrosis, and ligamentum flavum hypertrophy contribute to mild spinal canal stenosis and subarticular zone narrowing. Severe right and moderate left neural foraminal narrowing. Type 2 Modic endplate changes. L5-S1: Disc bulge, bilateral facet arthrosis, and ligamentum flavum hypertrophy. Mild spinal canal stenosis. Moderate bilateral neural foraminal narrowing. Fatty atrophy of the posterior Partially visualized large right renal cyst. MRI/Spine Lumbar (Routine) IMPRESSION: Multilevel lumbar spondylosis without high-grade spinal canal stenosis. [id number] neural foraminal stenosis at L4-L5. Reading Location: [id number] CC: Dr. Bayron Alvarez MD ~ Medical Affairs Director: Signed [facility] Spine Lumbar (Routine)on Spine Lumbar (Routine) [facility] Imaging Services [address] [place] [address] Spine Lumbar (Routine) MR#: [id number] Acct: [id number] Name: JAKE GUTIÉRREZ Rep #: [id number] : 1940 M 85 From: Francine Rosenberg MD PCP: Dr. Bayron Alvarez MD Status: REG CLI Study: Spine Lumbar (Routine) Date of Exam: 03/10/25 Exam# [id number] Ordering Dr: Bayron Alvarez MD PROCEDURE: SPINE LUMBAR (ROUTINE) 03/10/2025 REASON FOR EXAM: SCIATICA,RIGHT SIDE TECHNIQUE: Procedure Code: MRISPL Modality: MR Procedure: SPINE LUMBAR (ROUTINE) COMPARISON: None available. FINDINGS: For the purposes of this report, the most caudal rectangular vertebral body will be designated L5. The next most caudal trapezoidal shaped vertebral body will be designated S1. The intervening disc at the lumbosacral angle is designated L5-S1. Straightening of the cervical lordosis. The lumbar vertebral bodies are normal in height. No significant spondylolisthesis. No focal bone marrow replacing lesion in the lumbar spine. Multilevel disc desiccation. Advanced multilevel intervertebral disc space height loss with relative sparing at L5-S1. There is no evidence of signal abnormality in the imaged distal spinal cord. The conus medullaris terminates at the level of T12-L1. T12-L1: Disc bulge, bilateral facet arthrosis, and ligamentum flavum hypertrophy contribute to mild spinal canal stenosis. Moderate bilateral neural foraminal narrowing. L1-L2: Disc bulge, posterior osteophyte, bilateral facet arthrosis, and ligamentum flavum hypertrophy contribute to mild spinal canal stenosis. Moderate bilateral neural foraminal narrowing. L2-L3: Posterior osteophyte, bilateral facet arthrosis, and ligamentum flavum hypertrophy contribute to mild spinal canal stenosis and subarticular zone narrowing. There is crowding of the bilateral traversing nerve roots. Mild bilateral neural foraminal narrowing. Type 2 Modic endplate changes. L3-L4: Disc bulge, posterior osteophyte, bilateral facet arthrosis, and ligamentum flavum hypertrophy contributes to mild spinal canal stenosis. Mild bilateral neural foraminal narrowing. Type 2 Modic endplate changes. L4-L5: Disc bulge, posterior osteophyte, bilateral facet arthrosis, and ligamentum flavum hypertrophy contribute to mild spinal canal stenosis and subarticular zone narrowing. Severe right and moderate left neural foraminal narrowing. Type 2 Modic endplate changes. L5-S1: Disc bulge, bilateral facet arthrosis, and ligamentum flavum hypertrophy. Mild spinal canal stenosis. Moderate bilateral neural foraminal narrowing. Fatty atrophy of the posterior Partially visualized large right renal cyst. MRI/Spine Lumbar (Routine) IMPRESSION: Multilevel lumbar spondylosis without high-grade spinal canal stenosis. [id number]-ir-[id number] neural foraminal stenosis at L4-L5. Reading Location: [id number] CC: Dr. Bayron Alvarez MD Medical Affairs Director: Signed Normal [facility] Anion gap in Serum or Plasma Ordered By: Bayron Alvarez on 01-30-2025 Anion gap [Moles/Vol] 11 mmol/L 5-15 [facility] BUN/creatinine ratioOrdered By: Bayron Alvarez on 01-30-2025 Urea nitrogen/Creatinine [Mass ratio] 21.0 mg/mg High - [facility] Basic Metabolic Profile (BMP )on 01-30-2025 BUN/CRE 21.0 RATIO High - [facility] Comment on above: Performed By: #### L 500.2500, L501.9985 #### [facility] [address] [facility] [address] Calcium [Mass/Vol] 9.1 mg/dL Normal 7.6-11.0 [facility] Comment on above: Performed By: #### L 500.2500, L501.9985 #### [facility] [address] [place], [address] Chloride [Moles/Vol] 107 mmol/L Normal 98-108 [facility] Comment on above: Performed By: #### L 500.2500, L501.9985 #### [facility] [address] [place], [address] CO2 [Moles/Vol] 21.5 mmol/L Normal 21.0-32.0 [facility] Comment on above: Performed By: #### L 500.2500, L501.9985 #### [facility] [address] [place], [address] Creatinine [Mass/Vol] 0.98 mg/dL Normal 0.70-1.20 [facility] Comment on above: Performed By: #### L 500.2500, L501.9985 #### [facility] [address] [place], [address] GAP 11 Normal 5-15 [facility] Comment on above: Performed By: #### L 500.2500, L501.9985 #### [facility] [address] [place], [address] GFR/1.73 sq M.predicted among non-blacks MDRD (S/P/Bld) [Vol rate/Area] 75 mL/min/{1.73_m2} Normal >60 [facility] Comment on above: Result Comment: mL/m in/1.73m2 CKD-EPI Creatinine Equation (2020) Performed By: #### L 500.2500, L501.9985 #### [facility] [address] [place], [address] Glucose [Mass/Vol] 141 mg/dL High 70-99 [facility] Comment on above: Performed By: #### L 500.2500, L501.9985 #### [facility] [address] [place], [address] Potassium [Moles/Vol] 4.2 mmol/L Normal 3.3-5.1 [facility] Comment on above: Performed By: #### L 500.2500, L501.9985 #### [facility] [address] [place], [address] Sodium [Moles/Vol] 140 mmol/L Normal 133-145 [facility] Comment on above: Performed By: #### L 500.2500, L501.9985 #### [facility] [address] [place], [place], [id number] Urea nitrogen [Mass/Vol] 21 mg/dL High 4-19 [facility] Comment on above: Performed By: #### L 500.2500, L501.9985 #### [facility] [address] [place], [place], [id number] Carbon dioxide, total [Moles /volume] in Central venous bloodOrdered By: Bayron Alvarez on 01-30-2025 CO2 [Moles/Vol] 21.5 mmol/L 21.0-32.0 [facility] Chloride assayOrdered By: Alessandro Alvarez on 01-30-2025 Chloride [Moles/Vol] 107 mmol/L 98-108 [facility] Glomerular filtration rate ( GFR) estimation/1.73 sq m using serum, plasma, or whole bOrdered By: Bayron Alvarez on 01-30-2025 GFR/1.73 sq M.predicted among non-blacks MDRD (S/P/Bld) [Vol rate/Area] 75 mL/min/{1.73_m2} >60 [facility] Comment on above: mL/min/1.73m2 CKD-EP I Creatinine Equation (2020) Hemoglobin A1con 01-30-2025 HbA1c (Bld) [Mass fraction] 6.6 % High <=5.6 [facility] Comment on above: Result Comment: Norm al < 5.7 % Prediabetic 5.7 - 6.4 % Diabetic >or= 6.5 % Please note range changes. Performed By: #### L 500.2500, L501.9985 #### [facility] [address] [place], [place], [id number] Hemoglobin A1c percentageOrd ered By: Bayron Alvarez on 01-30-2025 HbA1c (Bld) [Mass fraction] 6.6 % High <5.7 [facility] Comment on above: Normal < 5.7 % Predi abetic 5.7 - 6.4 % Diabetic >or= 6.5 % Please note range changes. Potassium measurement (mass/ volume)Ordered By: Bayron Alvarez on 01-30-2025 Potassium (Unsp spec) [Mass/Vol] 4.2 mmol/L 3.3-5.1 [facility] Serum creatinine measurement (mass/volume)Ordered By: Bayron Alvarez on 01-30-2025 Creatinine [Mass/Vol] 0.98 mg/dL 0.70-1.20 [facility] Serum glucose measurement (m ass/volume)Ordered By: Bayron Alvarez on 01-30-2025 Glucose [Mass/Vol] 141 mg/dL High 70-99 [facility] Serum or plasma calcium luis urement (mass/volume)Ordered By: Bayron Alvarez on 01-30-2025 Calcium [Mass/Vol] 9.1 mg/dL 7.6-11.0 [facility] Serum or plasma urea nitroge n measurement (mass/volume)Ordered By: Bayron Alvarez on 01-30-2025 Urea nitrogen [Mass/Vol] 21 mg/dL High 4-19 [facility] Sodium levelOrdered By: Bayron Alvarez on 01-30-2025 Sodium [Moles/Vol] 140 mmol/L 133-145 [facility] L/S Spine Min 4 Viewson 07-16 L/S Spine Min 4 Views [facility] Imaging Services [address] [place] [address] L/S Spine Min 4 Views MR#: [id number] Acct: [id number] Name: JAKE GUTIÉRREZ Rep #: [id number] : 1940 M 84 From: Pedro Canchola PCP: Dr. Bayron Alvarez MD Status: DEP AMB Study: L/S Spine Min 4 Views Date of Exam: 08/01/24 Exam# [id number] Ordering Dr: Aria Lamb PROCEDURE: Lumbar spine [...] CC: ALESSANDRO Alejandra; Dr. 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 He states he had a herniated disc [...] history recomm (more content not included)... Normal [facility] Absolute lymphocyte countOrd ered By: Jasmin Hurst on 05-20-2023 Lymphocytes Auto (Unsp spec) [#/Vol] 1.11 10*3/uL 0.83-4.51 [facility] Basophil percentageOrdered B y: Jasmin Hurst on 05-20-2023 Basophils/100 WBC (Bld) 0.4 % 0-[address] [facility] Chloride [Moles/Vol] 113 mmol/L 98-107 [facility] Eosinophils/100 WBC (Bld) 1.8 % 0-5 [facility] Glucose [Mass/Vol] 141 mg/dL 74-106 [facility] Comment on above: Fasting Glucose resu lt greater than or equal to 126 mg/dL suggests DIABETES MELLITUS per A.D.A. criteria. Neutrophils (Bld) [#/Vol] 6.0 10*3/uL 2.0-7.7 [facility] Neutrophils/100 WBC (Bld) 71.8 % 47-70 [facility] Potassium [Moles/Vol] 4.1 mmol/L 3.5-5.1 [facility] Sodium [Moles/Vol] 140 mmol/L 136-145 [facility] WBC (Bld) [#/Vol] 8.3 10*3/uL 4.4-11.0 [facility] Blood erythrocytes count (nu mber/volume)Ordered By: Jasmin Hurst on 05-20-2023 RBC (Bld) [#/Vol] 3.22 10*6/uL 4.6-6.2 [facility] Blood hemoglobin measurement (mass/volume)Ordered By: Jasmin Hurst on 05-20-2023 Hemoglobin (Bld) [Mass/Vol] 10.7 g/dL 13.0-16.5 [facility] Blood lymphocytes/100 leukoc ytesOrdered By: Jasmin Hurst on 05-20-2023 Lymphocytes/100 WBC (Bld) 13.4 % 19-41 [facility] Blood monocytes/100 leukocyt esOrdered By: Jasmin Hurst on 05-20-2023 Monocytes/100 WBC (Bld) 12.1 % 0-10 [facility] Blood platelet mean volumeOr dered By: Jasmin Hurst on 05-20-2023 Platelet mean volume (Bld) [Entitic vol] 8.9 fL 6.2-12.0 [facility] Determination of erythrocyte mean corpuscular volume (MCV)Ordered By: Jasmin Hurst on 05-20-2023 MCV (RBC) [Entitic vol] 101.9 fL 80-94 [facility] Hematocrit Auto (Bld) [Volum e fraction]Ordered By: Jasmin Hurst on 05-20-2023 Hematocrit (Bld) [Volume fraction] 32.8 % 40-54 [facility] - Chemistry and C hemistry - challengeOrdered By: Jasmin Hurst on 05-20-2023 CO2 [Moles/Vol] 23.0 mmol/L 21.0-32.0 [facility] Urea nitrogen/Creatinine [Mass ratio] 16.3 mg/mg 10-20 [facility] - Hematology and Cell countsOrdered By: Jasmin Hurst on 05-20-2023 Erythrocyte distribution width (RBC) [Entitic vol] 49.0 fL 35.1-43.9 [facility] Erythrocyte distribution width (RBC) [Ratio] 13.0 % 11.6-14.6 [facility] Immature granulocytes/100 WBC (Bld) 0.500 % 0.0-0.9 [facility] Comment on above: IG% - Immature Granu locytes (promyelocytes, myelocytes and metamyelocytes) > 1% indicates that a LEFT SHIFT is Present. MCH (RBC) [Entitic mass] 33.2 pg 27.0-32.0 [facility] Nucleated RBC/100 WBC (Bld) [Ratio] 0 % 0-5 [facility] MCHC Auto (RBC) [Mass/Vol]Or dered By: Jasmin Hurst on 05-20-2023 MCHC (RBC) [Mass/Vol] 32.6 g/dL 32-36 [facility] No Panel InformationOrdered By: Jasmin Hurst on 05-20-2023 Estimated Creatinine Clearance Calc 61.59 ml/min [facility] Estimated GFR (MDRD) Amer 93 mL/min >60 [facility] Comment on above: GFR Calc Estimated GFR (MDRD) Non-Af Amer 77 mL/min >60 [facility] Comment on above: Non- GFR Calc Platelets bldOrdered By: Katherine Hurst on 05-20-2023 Platelets (Bld) [#/Vol] 165 10*3/uL 150-450 [facility] Serum or plasma calcium luis urement (mass/volume)Ordered By: Jasmin Hurst on 05-20-2023 Calcium [Mass/Vol] 8.4 mg/dL 8.5-10.1 [facility] Serum or plasma creatinine m easurement (mass/volume)Ordered By: Jasmin Hurst on 05-20-2023 Creatinine [Mass/Vol] 0.98 mg/dL 0.70-1.30 [facility] Comment on above: The validity of the calculated GFR & GFRAA in patients over 70 years has not been determined. Clinical correlation is essential. Serum or plasma urea nitroge n measurement (mass/volume)Ordered By: Jasmin Hurst on 05-20-2023 Urea nitrogen [Mass/Vol] 16 mg/dL 7-18 [facility] Thin prep Papanicolaou smear with manual screeningOrdered By: Jasmin Hurst on 05-20-2023 Thin prep Papanicolaou smear with manual screening 4 5-15 [facility] Absolute lymphocyte countOrd ered By: Po Chun on 05-19-2023 Lymphocytes Auto (Unsp spec) [#/Vol] 0.76 10*3/uL 0.83-4.51 [facility] Basophil percentageOrdered B y: Po Chun on 05-19-2023 Basophil percentage 0 SEEN /hpf 0-5 [facility] Basophils/100 WBC (Bld) 0.3 % 0-1 [facility] Bilirubin [Mass/Vol] 0.80 mg/dL 0.20-1.00 [facility] Comment on above: For patients on eltr ombopag therapy, use of Dimension [place] TBIL is not recommended. Chloride [Moles/Vol] 108 mmol/L 98-107 [facility] Eosinophils/100 WBC (Bld) 0.9 % 0-5 [facility] Glucose [Mass/Vol] 155 mg/dL 74-106 [facility] Comment on above: Fasting Glucose resu lt greater than or equal to 126 mg/dL suggests DIABETES MELLITUS per A.D.A. criteria. Neutrophils (Bld) [#/Vol] 8.2 10*3/uL 2.0-7.7 [facility] Neutrophils/100 WBC (Bld) 82.5 % 47-70 [facility] Potassium [Moles/Vol] 4.4 mmol/L 3.5-5.1 [facility] Protein [Mass/Vol] 7.2 g/dL 6.4-8.2 [facility] Sodium [Moles/Vol] 138 mmol/L 136-145 [facility] WBC (Bld) [#/Vol] 9.9 10*3/uL 4.4-11.0 [facility] Bilirubin Test strip Ql (U)O rdered By: Po Chun on 05-19-2023 Bilirubin Ql (U) Negative Negative [facility] Blood erythrocytes count (nu mber/volume)Ordered By: Po Chun on 05-19-2023 RBC (Bld) [#/Vol] 3.75 10*6/uL 4.6-6.2 [facility] Blood hemoglobin measurement (mass/volume)Ordered By: Po Chun on 05-19-2023 Hemoglobin (Bld) [Mass/Vol] 12.5 g/dL 13.0-16.5 [facility] Blood lymphocytes/100 leukoc ytesOrdered By: Po Chun on 05-19-2023 Lymphocytes/100 WBC (Bld) 7.7 % 19-41 [facility] Blood monocytes/100 leukocyt esOrdered By: Po Chun on 05-19-2023 Monocytes/100 WBC (Bld) 8.2 % 0-10 [facility] Blood platelet mean volumeOr dered By: Po Chun on 05-19-2023 Platelet mean volume (Bld) [Entitic vol] 8.8 fL 6.2-12.0 [facility] Determination of erythrocyte mean corpuscular volume (MCV)Ordered By: Po Chun on 05-19-2023 MCV (RBC) [Entitic vol] 100.3 fL 80-94 [facility] Hematocrit Auto (Bld) [Volum e fraction]Ordered By: Po Chun on 05-19-2023 Hematocrit (Bld) [Volume fraction] 37.6 % 40-54 [facility] Influenza virus A and B and SARS-CoV-2 (COVID-19) Ag panel - Upper respiratory specimOrdered By: Po Chun on 05-19-2023 SARS-CoV-2 & FLU Antigen (Rapid) SARS-CoV-2 (COVID 19) [facility] SARS-CoV-2 (COVID-19) RNA ED+probe Ql (Resp) [facility] Ketones Test strip Ql (U)Ord ered By: Po Chun on 05-19-2023 Ketones Ql (U) Negative Negative [facility] Laboratory - Chemistry and C hemistry - challengeOrdered By: Po Chun on 05-19-2023 ALP [Catalytic activity/Vol] 92 U/L 45-117 [facility] ALT [Catalytic activity/Vol] 18 U/L 16-61 [facility] CO2 [Moles/Vol] 27.0 mmol/L 21.0-32.0 [facility] Globulin (S) [Mass/Vol] 3.9 g/dL 2.2-4.2 [facility] Urea nitrogen/Creatinine [Mass ratio] 16.7 mg/mg 10-20 [facility] Laboratory - Hematology and Cell countsOrdered By: Po Chun on 05-19-2023 Erythrocyte distribution width (RBC) [Entitic vol] 47.0 fL 35.1-43.9 [facility] Erythrocyte distribution width (RBC) [Ratio] 12.8 % 11.6-14.6 [facility] Immature granulocytes/100 WBC (Bld) 0.400 % 0.0-0.9 [facility] Comment on above: IG% - Immature Granu locytes (promyelocytes, myelocytes and metamyelocytes) > 1% indicates that a LEFT SHIFT is Present. MCH (RBC) [Entitic mass] 33.3 pg 27.0-32.0 [facility] Nucleated RBC/100 WBC (Bld) [Ratio] 0 % 0-5 [facility] MCHC Auto (RBC) [Mass/Vol]Or dered By: Po Chun on 05-19-2023 MCHC (RBC) [Mass/Vol] 33.2 g/dL 32-36 [facility] Mucus LM Ql (Urine sed)Order ed By: Po Chun on 05-19-2023 Mucus Ql (Urine sed) 0 SEEN /hpf [facility] Nitrite Test strip Ql (U)Ord ered By: Po Chun on 05-19-2023 Nitrite Ql (U) Negative Negative [facility] No Panel InformationOrdered By: Po Chun on 05-19-2023 Estimated Creatinine Clearance Calc 55.66 ml/min [facility] Estimated GFR (MDRD) Amer 89 mL/min >60 [facility] Comment on above: GFR Calc Estimated GFR (MDRD) Non-Af Amer 74 mL/min >60 [facility] Comment on above: Non- GFR Calc Troponin I High Sensitivity 8 pg/mL 3.0-78.0 [facility] Comment on above: Please Note: New Magaly t Units and Gender Specific Reference Ranges. For more information see Policy Stat Procedure [place] High Sensitivity Troponin (TNIH) and attachments. Platelets bldOrdered By: Sj Chun on 05-19-2023 Platelets (Bld) [#/Vol] 190 10*3/uL 150-450 [facility] Protein Test strip Ql (U)Ord ered By: Po Chun on 05-19-2023 Protein Ql (U) 15 mg/dl Negative [facility] Serum or plasma albumin luis urement (mass/volume)Ordered By: Po Chun on 05-19-2023 Albumin [Mass/Vol] 3.3 g/dL 3.2-5.0 [facility] Serum or plasma albumin/glob ulin mass ratioOrdered By: Po Chun on 05-19-2023 Albumin/Globulin [Mass ratio] 0.8 {ratio} 0.9-2.4 [facility] Serum or plasma calcium luis urement (mass/volume)Ordered By: Po Chun on 05-19-2023 Calcium [Mass/Vol] 8.6 mg/dL 8.5-10.1 [facility] Serum or plasma creatinine m easurement (mass/volume)Ordered By: Po Chun on 05-19-2023 Creatinine [Mass/Vol] 1.02 mg/dL 0.70-1.30 [facility] Comment on above: The validity of the calculated GFR & GFRAA in patients over 70 years has not been determined. Clinical correlation is essential. Serum or plasma urea nitroge n measurement (mass/volume)Ordered By: Po Chun on 05-19-2023 Urea nitrogen [Mass/Vol] 17 mg/dL 7-18 [facility] Squamous epithelial cells de tection in urine sediment by light microscopyOrdered By: Po Chun on 05-19-2023 Epithelial cells.squamous LM Ql (Urine sed) 0 SEEN /hpf 0-5 [facility] Thin prep Papanicolaou smear with manual screeningOrdered By: Po Chun on 05-19-2023 Thin prep Papanicolaou smear with manual screening 12 U/L 15-37 [facility] Thin prep Papanicolaou smear with manual screening 3 5-15 [facility] Urine blood detectionOrdered By: Po Chun on 05-19-2023 RBC Ql (U) Negative Negative [facility] RBC Ql (U) 0 SEEN /hpf 0-5 [facility] Urine clarityOrdered By: Sj Chun on 05-19-2023 Clarity (U) Clear Clear [facility] Urine color determinationOrd ered By: Po Chun on 05-19-2023 Color (U) Yellow Yellow [facility] Urine glucose detectionOrder ed By: Po Chun on 05-19-2023 Glucose Ql (U) Normal mg/dl Normal [facility] Urine leukocyte esterase det ection by dipstickOrdered By: Po Chun on 05-19-2023 Leukocyte esterase Test strip Ql (U) Negative Negative [facility] Urine pHOrdered By: Po turcios on 05-19-2023 pH (U) 6.5 [pH] 5.0 - 8.0 [facility] Urine sediment bacteria coun t by microscopy (number/high power field)Ordered By: Po Chun on 05-19-2023 Bacteria LM.HPF (Urine sed) [#/Area] 0 /[HPF] None Seen [facility] Urine specific gravity measu rementOrdered By: Po Chun on 05-19-2023 Specific gravity (U) [Rel density] 1.015 1.002-1.030 [facility] Urobilinogen Auto test strip Ql (U)Ordered By: Po Chun on 05-19-2023 Urobilinogen Ql (U) Normal mg/dl Normal [facility] Vital Signs Date Time Vital Sign Value Performing Clinician Faci lity 05-20-2023 12:41-0500 Inhaled oxygen flow rate 0 L/min [facility] 05-20-2023 12:41-0500 SaO2% (BldA) [Mass fraction] 100 % [facility] 05-20-2023 12:29-0500 Body temperature 98.2 [degF] [facility] 05-20-2023 12:29-0500 Diastolic blood pressure 67 mm[Hg] [facility] 05-20-2023 12:29-0500 Heart rate 76 /min [facility] 05-20-2023 12:29-0500 Respiratory rate 16 /min [facility] 05-20-2023 12:29-0500 Systolic blood pressure 120 mm[Hg] [facility] 05-19-2023 12:33-0500 Body height 182.88 cm [facility] 05-19-2023 12:33-0500 Body mass index (BMI) [Ratio] 23.9 kg/m2 [facility] 05-19-2023 12:33-0500 Body weight 80 kg [facility] 05-19-2023 12:11-0500 Diastolic blood pressure 59 mm[Hg] [facility] 05-19-2023 12:11-0500 Heart rate 107 /min [facility] 05-19-2023 12:11-0500 Respiratory rate 16 /min [facility] 05-19-2023 12:110500 SaO2% (BldA) [Mass fraction] 97 % [facility] 05-19-2023 12:110500 Systolic blood pressure 117 mm[Hg] [facility] 05-19-2023 10:21050 Body height 177.8 cm [facility] 05-19-2023 10:210500 Body mass index (BMI) [Ratio] 29.6 kg/m2 [facility] 05-19-2023 10:050 Body temperature 99 [degF] [facility] 05-19-2023 10:050 Body weight 93.7 kg [facility] Encounters Encounter Date Encounter Type Care Provider Facility Start: 03-24-2025 End: 03-24-[address] Vern Charles MD -[facility] Work Phone: Start: 03-24-2025 End: 03-24-2025 ambulatory Bayron Alvarez Facility:[facility] [place] Start: 03-10-2025 End: 03-10-[address] Bayron Alvarez MD Work Phone: -[facility] Start: 03-10-2025 End: 03-10-[address] Bayron Alvarez MD -[facility] Work Phone: Start: 03-10-2025 End: 03-10-2025 ambulatory Bayron Alvarez Facility:[facility] Start: 01-30-2025 End: 01-30-[address] Bayron Alvarez MD Work Phone: -[facility] Start: 01-30-2025 End: 01-30-[address] Bayron Alvarez MD -[facility] Start: 01-30-2025 End: 01-30-2025 ambulatory Bayron Alvarez Facility:[facility] Start: 08-24-2024 [facility] Start: 08-05-2024 [facility] Start: 08-01-2024 End: 08-01-2024 ambulatory Bayron Alvarez Facility:[facility] Start: 07-29-2023 End: 07-29-[address] Bayron Alvarez Work Phone: [facility] Work Phone: Start: 07-29-2023 End: 07-29-[address] Bayron Alvarez Work Phone: [facility] Work Phone: Start: 05-20-2023 Non-patient / Non-visit Dr. Alessandro Alvarez Work Phone: [facility] Work Phone: Start: 05-19-2023 End: 05-20-2023 Evaluation and management of inpatient [facility] Work Phone: Start: 05-19-2023 End: 05-20-2023 observation encounter [facility] Work Phone: Procedures Date Procedure Procedure Detail Performing Clinician Start: 03-10-2025 MRI of lumbar spine Dr. Bayron Alvarez MD Work Phone: Start: 05-19-2023 SARS-CoV-2 & FLU Ant igen (Rapid) Start: 05-19-[address] Bayron Alvarez Work Phone: Start: 05-19-2023 Plain chest X-ray Start: 05-19-2023 CT of head without contrast Plan of Treatment Date Care Activity Detail Author Start: 05-20-2023 Patient discharge [facility] Start: 05-19-2023 Following clinical p athway protocol [facility] Start: 05-19-2023 Assessment of risk o f venous thromboembolism [facility] Start: 05-19-2023 Fall prevention [facility] Start: 05-19-2023 Insertion of cathete r into peripheral vein [facility] Start: 05-19-2023 Providing care accor ding to standard [facility] Start: 05-19-2023 Provision of activity privileges [facility] Start: 05-19-2023 Referral to occupati onal therapist [facility] Start: 05-19-2023 Referral to service [facility] Start: 05-19-2023 Verification routine [facility] Start: 05-19-2023 Admission procedure [facility] Start: 05-19-2023 Hospital admission, emergency, from emergency room, medical nature [facility] Start: 05-19-2023 End: 05-19-2023 [facility] Bilirubin measurement, urine [facility] Hemoglobin [Presence] in Urine [facility] Measurement of keton es in urine using dipstick [facility] Microscopic urinalysis [facility] Patient referral [facility] Work Phone: pH of Urine [facility] Specific gravity of Urine [facility] Urinalysis, blood, qualitative [facility] Urine dipstick for glucose [facility] Urine dipstick for l eukocyte esterase [facility] Urine dipstick for nitrite [facility] Urine dipstick for protein [facility] Urine examination [facility] Urine microscopy: ep ithelial cells [facility] Urine Microscopy: white cells [facility] Urobilinogen [Presence] in Urine [facility] Immunizations Immunization Date Immunization Notes Care Provider Fa cility 08-02-2020 [facility] ([facility] Payers Date Payer Category Payer Self-pay [id number] 2022 Medicare [id number] [employer] ( and others) [id number] Medicare ANTHEM MEDICARE SENIOR ADVANTA [id number] Medicare MEDICARE PART A B [id number] Unknown [id number] Unknown RUTH ANN [id number] Unknown AARP MCR ADV [id number] Unknown [id number] Unknown [id number] Unknown [id number] Unknown [id number] Unknown [id number] Unknown [id number] Unknown [id number] Social History Date Type Detail Facility Start: 05-19-2023 End: 05-19-2023 Tobacco smoking status NHIS Unknown if ever smoked [facility] Start: 1940 Sex Assigned At Male [facility] Start: 07-25-2024 Tobacco smoking stat us NHIS Never smoked tobacco (finding) [facility] Sex Male [facility] Goals Date Patient Goal Desired Activity /State Functional Status Date Assessment Result Facility 05-20-2023 Functional status Ambulates [facility] Work Phone: Mental Status Date Assessment Result Facility 05-20-2023 Cognitive function Voice/Name [facility] Work Phone: 05-19-2023 Cognitive function Level Of Cons ciousness Awake;Alert;Appropriate;Follow s Commands [facility] Work Phone: Clinical Notes 05-19-2023 to 03-24-2025 Note Date & Type Note Facility 03-24-2025 Evaluation note Diagnosis Onset Date Resolution DDD (degenerative disc disease), lumbar acute March 24 9:41am Foraminal stenosis of lumbar region acute March 24 9:41am [facility] Work Phone: 1(290) 678-741410-10-2025 Progress [facility] [address] [facility] [address] [place] [address] OFFICE VISIT Date of Service: 03/24/25 MR#: [id number] Acct: [id number] Name: JAKE GUTIÉRREZ Rep #: [id number] : 1940 Provider: Dr. Masoud Charles MD Age/Sex: 85/M Location[place] [facility] [place] Status: Signed Intake Vital Signs 08/01/24 08:55 Height 6 ft Intake Visit Reasons: LUMBAR SPINE Chief Complaint: MRI Review Accompanied by: Self Is patient in pain?: Yes Allergies No Known Allergies Allergy (Verified 03/24/25 10:01) Medications ?Medication ?Instructions ?Recorded ?Confirmed ?Type NK 03/24/25 03/24/25 History Have you fallen in the past year?: No [facility] Medical History (Updated 03/24/25 @ 10:59 by Marti Keenan, RN) Foraminal stenosis of lumbar region COVID Eye trauma Bilateral cataracts Prostate cancer Surgical History History of back surgery Social History Smoking Status: Never smoker HPI LUMBAR SPINE Details: This documentation accurately reflects the service provided and the decisions made by me, Dr. Vern Charles MD 03/24/25 0909. Part of today?s visit was documented by Galina Lepe ATC and Marti Keenan RN, acting as scribe. JAKE GUTIÉRREZ is a 85 year old M here today for MRI review. He states the pain has not gotten any better since his initial visit. He states all of his pain is in the lumbar spine and down the legs. He denies any specific injury. He did have a back surgery about 30 years ago for a herniated disc and the last couple of years the back started bothering him. He states if he sits for a prolonged period of time he can barely stand up. He notes he is unable to bend over. He describes the back as veryweak. He denies any numbness or tingling down the legs but states it is an ache and occasionally will have sciatic pain down the legs. He denies any injections in the back. He states he has done physical therapy 2- 3 different times and it did not give him any relief. He is able to walk long distances but states it is painful and he will have to stop and rub his back to help. He stats he can usually walk two miles. He is borderline diabetic and takes his blood glucose typically once per week, heis not on medications for this. He reports balance issues. The patient is an 85-year-old male presenting with chronic back pain and associated leg symptoms. The back pain has been persistent for many months and radiates down both legs, occasionally causing numbness in the feet. The patient reports that the pain worsens with certain positions and improves when the legs are lowered. The patient has a history of back surgery approximately 20-25 years ago, but no recent surgical interventions. He has not undergone physical therapy recently, although it was suggested following an x-ray at the [facility], which revealed a spinal curvature. The patient has not received any injections for the back pain. The MRI conducted on March 10 revealed degenerative changes with nerve impingement at the lowerlumbar levels, contributing to the patient's symptoms. The patient is also noted to have borderlinediabetes mellitus, which is monitored but not currently treated with medication. - Musculoskeletal: Reports chronic back pain radiating to legs, intermittent numbness in feet - Neurological: Reports numbness in feet, denies other neurological symptoms - Endocrine: Reports monitoring blood glucose levels, denies current treatment for diabetes Attestation: Documentation on this patient encounter was supported using ambient scribe technology/ voice AI technology. The patient consented to recording for the purpose of documenting the encounter. Provider reviewed content of the generatednote prior to signature. 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 He states he had a herniated disc in his low back but is unsure of whichone. Patient is unsure what kind procedure he had done at this time. Says thatafter this procedure 30 years ago he has not had any back pain until the last 2 years. He denies new injury, numbness or tingling. Says that his pain will increase when he is outside working such as shoveling snow. He denies any pain in his legs and any pain inhis legs after he is on his feet for a long period of time. He says he walks several miles a day especially when it is nice outside and that his walking distance has not decreased. He denies recent Xr ays,MRI or PT. he denies any balance or dexterity issues. Says that he only takes 1Advil per day because he does not want to become addicted. [facility] did not go to any sessions due to being told by physical therapy it wouldn't improve his condition. No diabetes, no blood thinners, no heart or lung issues. Ortho Exam General General: Yes no acute distress Neurologic: Yes alert and Yes oriented x3 Psychologic: Yes reasonable and appropriate Spine SPINE TESTING CERVICAL THORACIC LUMBAR Musculoskeletal Strength 0=absent - 5=normal Details: Neurological exam of the lower extremities shows 5x5 power. Normal sensations across all dermatomes. No hyperreflexia. No midline and mild paraspinal tenderness. Physical examination of the back shows a well-healed midline incision. Chaparro's negative. Coding Level of Care Code Off vis,est,level 4 Diagnoses Degeneration of intervertebral disc of lumbar region with discogenic back pain M51.360 Disc-related pain type: discogenic back pain only Foraminal stenosis of lumbar region M48.061 Time Spent (min) 35 Assessment and Plan Assessment and Plan (1) DDD (degenerative disc disease), lumbar: Status: Acute Qualifiers: Disc-related pain type: discogenic back pain only Qualified Code(s): M51.360 - Other intervertebraldisc degeneration, lumbar region with discogenic back pain only (2) Foraminal stenosis of lumbar region: Status: Acute Orders: Referrals Pain Management M51.360 - Other intervertebral disc degeneration, lumbar region with discogenic back pain only Plan I reviewed pt's lumbar MRI in detail. I also reviewed pt's previous lumbar x- rays in detail. X-raysshow a multilevel disc height loss throughout the lumbar back. No instability on flexion/extension views. MRI done recently shows multilevel disc degeneration with Modic changes, but relatively well preserved L5-S1disc height, significant foraminal stenosis at L4-S1 bilaterally. 1. Lumbar spinal stenosis with nerve impingement - Consideration of epidural steroid injections to alleviate symptoms. - Surgery is not recommended due to high risk associated with age. 2. Degenerative disc disease - Management with physical therapy to strengthen muscles and improve mobility. - Injections are also considered to manage pain. 3. Borderline diabetes mellitus - Continue monitoring blood glucose levels. - No current pharmacological intervention required. - Follow up with the pain management clinic for potential epidural steroid injections. - Engage in physical therapy to strengthen back muscles and improve mobility. - Continue monitoring blood glucose levels regularly. At this time I recommend that he seek non surgical options including PT and injections with pain management. He is agreeable to a pain management referral. He states PT has not helped in the past therefore he is not interested in this. We discussed that surgery would be higher risk for him given his advanced age. Follow up as needed or sooner if pain, swelling, numbness or associated symptoms, orconcerns develop. All questions answered. Patient in agreement of plan. Clinical Quality Measures Falls Risk Screening/Assistive Devices Have you fallen in the past year?: No 03/24/25 1557 > Date _ [facility]: Date (if applicable) CC: Dr. Zev Zuniga MD; Dr. Bayron Alvarez MD ~ [facility]12-06-2023 Hospital Discharge instructions Additional Instructions Date of Discharge: 05/20/23[facility] Work Phone: 1(995) 200-154612-06-2023 Consult note Author Renee Felipe [facility] May 20, 2023 11:53am Note Date/Time May 20, 2023 1 1:53am [facility] Medical Records Department [address] [place] [address] Counseling Note - Pharmacy 05/20/23 1152 MR#: [id number] Acct: [id number] Name: JAKE GUTIÉRREZ Rep #:[id number] : 1940 83 From: Renee Felipe PCP: Dr. Bayron Alvarez MD Status:ADM I NO Y Location: [place] [address] Pharmacy HI Med Reconciliation Pharmacy Service has performed discharge medication reconciliation for this patient. The patient's discharge medication list was reviewed for discrepancies and discrepancies were resolved. Medications at Discharge Home Medications vitamin B complex (B-Complex tablet) 1 tab PO DAILY 05/19/23 05/20/231152 <Electronically signed by Renee Felipe> Date _ Renee Felipe Cosigner Signature (if applicable): Date CC: ~ Signed [facility] Work Phone: 1(794) 798-687512-06-2023 Discharge summary Author Shaheen Mcfarland [facility] May 20, 2023 11:06am Note Date/Time May 20, 2023 1 1:05am [facility] Medical Records Department [address] [place] [address] Instructions for Home/Discharge Instructions 05/20/23 1102 MR#: [id number] Acct: [id number] Name: JAKE GUTIÉRREZ Cinthya Rep #:[id number] : 1940 83 From: Shaheen Mcfarland DO PCP: Dr. Bayron Alvarez MD Status:ADM I NO Discharge Instructions Diet Discharge Diet: No restrictions Activity Discharge Activity: Return to Normal Activity and - (Quarantine for a total of 7days from 05/19/2023) Weight Bearing Status: Full weight bearing Follow Up Care Test Results: Test results from this visit will be discussed in further detail at your follow- up appointment, if applicable. Discharge Plan Admission Admit [...] MD; Dr. Bayron Alvarez MD ~ Signed [facility] Work Phone: 1(378) 452-980112-05-2023 Discharge summary Author Po Chun [facility] May 19, 2023 4:20pm Note Date/Time May 19, 2023 1 0:37am [facility] Medical Records Department [address] [place] [address] Emergency Department Summary 05/19/23 MR#: [id number] Acct: [id number] Name: JAKE GUTIÉRREZ Rep #:[id number] : 1940 83 From: Po Chun MD PCP: Dr. Bayron Alvarez MD Status:ADM I NO Location: [place] [address] HPI HPI - Fall History of Present [...] Prior similar symptoms: No Recent Illness/Hospitalization: No [facility] Medical History Bilateral cataracts Eye trauma [...] girdle intact. Moving all 4 extremities. Normal medical interpreter strength. Normal dorsi plantarflexion. No edema. Neurologically is awake and alert. Answering questions and following commands. Normal medical interpreter strength. Normal dorsi plantarflexion. No drift. Const [...] 82.5 H Lymph % (Auto) 7.7 L Bland % (Auto) 8.2 Eos % (Auto) 0.9 [...] rate of 101 no acute signs of AL or ischemia. Discharge Plan Triage Chief Complaint: Fall ED Provider: Po Chun Dx/Rx/DC Orders Primary Care Provider: Bayron Alvarez Referrals: Bayron Alvarez MD [Primary Care Provider] - What to do if you have Problems For any increased pain, shortness of breath, bleeding, nausea or vomiting, chestpain, or any unexpected problems, contact your Primary Care Provider. Call [facility] ([phone]) or report to the closest Emergency Room. Call 911 if necessary. 05/19/23 1620 <Electronically signed by Po Chun MD> Cosigner Signature (if applicable): CC: Dr. Bayron Alvarez MD ~ Signed [facility] Work Phone: 1(408) 106-139012-05-2023 History and physical note [facility] May 19, 2023 4:00pm Note Date/Time May 19, 2023 1 1:59am [facility] Medical Records Department [address] [facility] [place] [address] H&P Exam - Hospitalist 05/19/23 1153 MR#: [id number] Acct: [id number] Name: JAKE GUTIÉRREZ Rep #:[id number] : 1940 83 From: Jasmin Hurst MD PCP: Dr. Bayron Alvarez MD Status:ADM I NO Location: [place] [address] HPI - General General Date of Admission: [...] weakness likely due to COVID. [facility] Medical History Bilateral cataracts Eye trauma Prostate [...] (Auto) 82.5 H, Lymph % (Auto)7.7 L, Bland % (Auto) 8.2, Eos % (Auto) 0.9, [...] COVID-19 infection. Currently on room air. * Russell very weak today. He is usually very active and able to walk at least 1 to 2 miles daily. * Admit to [facility] under observation. * Hydrate gently with IV [...] Patient elects to be full code. Total [id number] time 16 minutes. Charges/Coding Visit Charges Inpatient E&M: 04246 Init Hosp L2 Procedures Hospitalists Procedures: 59921 Advncd Care Plan 30 Min 05/19/23 1600 <Electronically signed by Jasmin Hurst MD> Cosigner Signature (if applicable): CC: Dr. Jasmin Hurst MD; Dr. Bayron Alvarez MD~ Signed [facility] Work Phone: Evaluation note* Diagnosis Onset Date Resolution Status COVID acute Difficulty in walking acute Fall acute Generalized muscle weakness acute Hx of prostatic malignancy a cute [facility] Work Phone: Evaluation note* Diagnosis Onset Date Resolution Status Hx of prostatic malignancy a cute Difficulty in walking resolv ed Fall resolved Generalized muscle weakness resolved [facility] Work Phone: Evaluation noteNo assessment information available [facility] Work Phone: Evaluation note* Diagnosis Onset Date Resolution Status Admit Date DDD (degenerative disc disease), lumbar acute March 24 025 9:41am Foraminal stenosis of lumbar region acute March 24 9:41am [facility] Work Phone: Hospital Discharge instructionsAmbulatory Orders* Pain Management Location: None Selected [facility] Work Phone: Progress note Author Vern Charles [facility] Note Date/Time March 24, 2025 1 1:05am [facility] [address] [place] [address] [place], [place] [id number] OFFICE VISIT Date of Service: 03/24/25 MR#: [id number] Acct: [id number] Name: JAKE GUTIÉRREZ Rep #: [id number] : 1940 Provider: Dr. Masoud Charles MD Age/Sex: 85/M Location: [facility] [place] Status: Signed Intake Vital Signs 08/01/24 08:55 Height 6 ft Intake Visit Reasons: LUMBAR SPINE Chief Complaint: MRI Review Accompanied by: Self Is patient in pain?: Yes Allergies No Known Allergies Allergy (Verified 03/24/25 10:01) Medications ?Medication ?Instructions ?Recorded ?Confirmed ?Type NK 03/24/25 03/24/25 History Have you fallen in the past year?: No [facility] Medical History (Updated 03/24/25 @ 10:59 by Marti Keenan, ADRY) Foraminal stenosis of lumbar region COVID Eye trauma Bilateral cataracts Prostate cancer Surgical History History of back surgery Social History Smoking Status: Never smoker HPI LUMBAR SPINE Details: This documentation accurately reflects the service provided and the decisions made by me, Dr. Vern Charles MD 03/24/25 0901. Part of today?s visit was documented by Galina Lepe ATC and Marti Keenan RN, acting as scribe. JAKE GUTIÉRREZ is a 85 year old M here today for MRI review. He states the pain has not gotten any better since his initial visit. He states all of his pain is in the lumbar spine and down the legs. He denies any specific injury. He did have a back surgery about 30 years ago for a herniated disc and the last couple of years the back started bothering him. He states if he sits for a prolonged period of time he can barely stand up. He notes he is unable to bend over. He describes the back as very weak. He denies any numbness or tingling down the legs but states it is an ache and occasionally will have sciatic pain down the legs. He denies any injections in the back. He states he has done physical therapy 2-3 different times and it did not give him any relief. He is able to walk long distances but states it is painful and he will have to stop and rub his back to help. He stats he can usually walk two miles. He is borderline diabetic and takes his blood glucose typically once per week, he is not on medications for this. He reports balance issues. The patient is an 85-year-old male presenting with chronic back pain and associated leg symptoms. The back pain has been persistent for many months and radiates down both legs, occasionally causing numbness in the feet. The patient reports that the pain worsens with certain positions and improves when the legs are lowered. The patient has a history of back surgery approximately 20-25 years ago, but no recent surgical interventions. He has not undergone physical therapy recently, although it was suggested following an x-ray at the [facility], which revealed a spinal curvature. The patient has not received any injections for the back pain. The MRI conducted on March 10 revealed degenerative changes with nerve impingement at the lower lumbar levels, contributing to the patient's symptoms. The patient is also noted to have borderline diabetes mellitus, which is monitored but not currently treated with medication. - Musculoskeletal: Reports chronic back pain radiating to legs, intermittent numbness in feet - Neurological: Reports numbness in feet, denies other neurological symptoms - Endocrine: Reports monitoring blood glucose levels, denies current treatment for diabetes Attestation: Documentation on this patient encounter was supported using ambient scribe technology/ voice AI technology. The patient consented to recording for the purpose of documenting the encounter. Provider reviewed content of the generatednote prior to signature. 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 He states he had a herniated disc in his low back but is unsure of whichone. Patient is unsure what kind procedure he had done at this time. Says thatafter this procedure 30 years ago he has [...] distance has not decreased. He denies recent Xrays,MRI or PT. he denies any balance or dexterity issues. Says that he only takes 1Advil per day because he does not want to become addicted. [facility] he did not go to any sessions due to being told by physical therapy it wouldn't improve his condition. No diabetes, no blood thinners, no heart or lung issues. Ortho Exam General General: Yes no acute distress Neurologic: Yes alert and Yes oriented x3 Psychologic: Yes reasonable and appropriate Spine SPINE TESTING CERVICAL THORACIC LUMBAR Musculoskeletal Strength 0=absent - 5=normal Details: Neurological exam of the lower extremities shows 5x5 power. Normal sensations across all dermatomes. No hyperreflexia. No midline and mild paraspinal tenderness. Physical examination of the back shows a well-healed midline incision. Chaparro's negative. Coding Level of Care Code Off vis,est,level 4 Diagnoses Degeneration of intervertebral disc of lumbar region with discogenic back pain M51.360 Disc-related pain type: discogenic back pain only Foraminal stenosis of lumbar region M48.061 Time Spent (min) 35 Assessment and Plan Assessment and Plan (1) DDD (degenerative disc disease), lumbar: Status: Acute Qualifiers: Disc-related pain type: discogenic back pain only Qualified Code(s): M51.360 - Other intervertebral disc degeneration, lumbar region with discogenic back pain only (2) Foraminal stenosis of lumbar region: Status: Acute Orders: Referrals Pain Management M51.360 - Other intervertebral disc degeneration, lumbar region with discogenic back pain only Plan I reviewed pt's lumbar MRI in detail. I also reviewed pt's previous lumbar x- rays in detail. X-rays show a multilevel disc height loss throughout the lumbar back. No instability on flexion/extension views. MRI done recently shows multilevel disc degeneration with Modic changes, but relatively well preserved L5-S1disc height, significant foraminal stenosis at L4-S1 bilaterally. 1. Lumbar spinal stenosis with nerve impingement - Consideration of epidural steroid injections to alleviate symptoms. - Surgery is not recommended due to high risk associated with age. 2. Degenerative disc disease - Management with physical therapy to strengthen muscles and improve mobility. - Injections are also considered to manage pain. 3. Borderline diabetes mellitus - Continue monitoring blood glucose levels. - No current pharmacological intervention required. - Follow up with the pain management clinic for potential epidural steroid injections. - Engage in physical therapy to strengthen back muscles and improve mobility. - Continue monitoring blood glucose levels regularly. At this time I recommend that he seek non surgical options including PT and injections with pain management. He is agreeable to a pain management referral. He states PT has not helped in the past therefore he is not interested in this. We discussed that surgery would be higher risk for him given his advanced age. Follow up as needed or sooner if pain, swelling, numbness or associated symptoms, or concerns develop. All questions answered. Patient in agreement of plan. Clinical Quality Measures Falls Risk Screening/Assistive Devices Have you fallen in the past year?: No 03/24/25 1557 <Electronically signed by Vern Charles MD> Date _ Vern Charles MD Cosigner Signature: Date (if applicable) CC: Dr. Zev Zuniga MD; Dr. Bayron Alvarez MD ~ [facility] Work Phone: Reason for referral (narrative)No reason for referral information availableWThe [facility] Work Phone: Chief Complaint and Reason for [...] Difficulty in walking Fall Generalized muscle weakness Chief Complaint Admit Date M54.31 Sciatica, right side March 102024 10:57am LUMBAR SPINE March 24, 2025 9 :41am Reason for Visit Admit Date DDD (degenerative disc disease), lumbar March 24, 2025 9:41am Foraminal stenosis of lumbar region Octo 2024 9:41am Advance Directives Advance Directive Response Recorded Date/ Time Living Will Yes May 19 10:29am Power of Tissue Packer No May 19, 2023 10:29am Advance Directive Response Recorded Date/ Time Living Will No May 19 12:33pm Power of Tissue Packer No May 19, 2023 12:33pm Summary Purpose [...] January 30, 2025 End: January 30, 2025 Team Status: Active Member Role/Relationship Status Dates Dr. Bayron Alvarez MD Primary care physician Active Team Status: Inactive Member Role/Relationship Status Dates Dr. Bayron Alvarez MD Primary care physician Active Start: January 30, 2025 End: January 30, 2025 Dr. Bayron Alvarez MD Attending physician Active Start: January 30, 2025 End: January 30, 2025 Team Status: Inactive Member Role/Relationship Status Dates Dr. Bayron Alvarez MD Primary care physician Active Start: March 10, 2025 End: March 10, 2025 Dr. Bayron Alvarez MD Attending physician Active Start: March 10, 2025 End: March 10, 2025 Dr. Bayron Alvarez MD Referring Provider Active Start: March 10, 2025 End: March 10, 2025 Team Status: Inactive Member Role/Relationship Status Dates Dr. Bayron Alvarez MD Primary care physician Active Start: March 24, 2025 End: March 24, 2025 Dr. Bayron Alvarez MD Referring Provider Active Start: March 24, 2025 End: March 24, 2025 Dr. Vern Charles MD Attending physician Active Start: March 24, 2025 End: March 24, 2025 Goals (unrecognized section and content) Goals may be documented in a n alternate sectionGoals may be documented in an alternate sectionGoals may be documented in an alternate sectionGoals may be documented in an alternate section (unrecognized sect ion and content) No Status Records Found INFORMATION SOURCE (unrecogn ized section and content) DATE CREATED AUTHOR 03/25/2025 [facility] FOR RECORDS PERTAINING TO PATIENTS WHO ARE [...] BE BASED ON THE PRIMARY CLINICAL RECORDS. [employer] provides no warranty or guarantee of the accuracy or completeness of information in this document.
[2025-05-12 12:44] LABS: Anion Gap 11 (5-15); BUN 23 mg/dL (4-19); BUN/Creat Ratio 20.5 RATIO (10-20); Calcium,Total 9.3 mg/dL (7.6-11.0); Carbon Dioxide 24.5 mmol/L (21.0-32.0); Chloride 104 mmol/L (98-108); Cholesterol 213 mg/dL (<=200); Glucose 119 mg/dL (70-99); Low Density Lipoprotein Calc. 139 mg/dL; PSA,Total - Annual Screen < 0.02 ng/mL (0.02-4.00); Potassium 4.3 mmol/L (3.3-5.1); Triglycerides 207 mg/dL; Very Low Density Lipoprotein 41 mg/dL (5-40); cholesterol:hdl ratio screen 5.74
== END | disposition home or self-care (01) ==
LOC: MTLAB 10:22
PROVIDERS: PCP Family Medicine; Referring Provider Family Medicine; Visit Provider Family Medicine
DX: Z00.00 Encounter for general adult medical examination without abnormal findings (principal)
CPT/HCPCS: 36415; 80048; 80061; 84153; G0103